=== PATIENT | female | born 1975 | race African-American/Black ===

== ENCOUNTER 2017-02-26 11:49 | Emergency (ER) | payer BC ==
[~2017-02-26] VITALS: Ht 165.1 cm; Wt 83.5 kg
[~2017-02-26 11:49] MED LIST: HYDR-971 PO
[2017-02-26] MEDS ORDERED: LIDO:MAALOX:DONNATAL 1:1:1 15 ML SINGLE DOSE SWSW ONE (12:30)
[2017-02-26] MEDS ORDERED: MORPHINE SULFATE 10 MG/ML VIAL. IV ONE ×2 (12:30→15:15)
[2017-02-26] MEDS ORDERED: ONDANSETRON PF 4 MG/2 ML VIAL. IV ONE (12:30)
[2017-02-26] MEDS ORDERED: IV NORMAL SALINE 1000ML BAG 1,000 ML IV ONE (12:30)
[2017-02-26] MEDS ORDERED: PANTOPRAZOLE IV PUSH 40 MG VIAL. IVP ONE (12:30)
[2017-02-26 12:44] LABS: BASO # 0.1 x10^3/uL (0.0-0.2); BASO % 1 % (0-3); EOS % 5 % (0-3); HEMATOCRIT 33.2 % (36.0-47.0); HEMOGLOBIN 11.3 g/dL (12.0-15.5); LYMPH # 1.7 x10^3/uL (1.0-4.8); LYMPH % 29 % (24-48); MEAN CORPUSCULAR HEMOGLOBIN 27 pg (25-35); MEAN CORPUSCULAR HGB CONC 34 g/dL (31-37); MEAN CORPUSCULAR VOLUME 79 fL (79-100); MONO % 7 % (0-9); NEUT % 58 % (31-73); PLATELET COUNT 270 x10^3/uL (140-400); RED BLOOD COUNT 4.19 x10^6/uL (3.50-5.40)
[2017-02-26 12:46] LABS: BILIRUBIN,URINE NEGATIVE (NEG); GLUCOSE,URINE NEGATIVE (NEG); NITRITE,URINE NEGATIVE (NEG); PH,URINE 5.5; PROTEIN,URINE NEGATIVE (NEG-TRACE); UROBILINOGEN,URINE 0.2 mg/dL (0.2 mg/dL)
[2017-02-26 12:51] LABS: BACTERIA,URINE FEW /HPF (0-FEW); RBC,URINE 0 /HPF (0-2); SQUAMOUS EPITHELIAL CELL,UR MANY /LPF
[2017-02-26] MEDS ORDERED: IOHEXOL 300 MG/ML 75 ML VIAL IV ONE (13:15)
[2017-02-26 13:48] LABS: CALCIUM 8.1 mg/dL (8.5-10.1); CREATININE 0.9 mg/dL (0.6-1.0); GFR 83.1; POTASSIUM 4.1 mmol/L (3.5-5.1)
[2017-02-26 13:54] LABS: ALBUMIN/GLOBULIN RATIO 0.9 (1.0-1.7); MAGNESIUM 1.5 mg/dL (1.8-2.4); TOTAL BILIRUBIN 0.2 mg/dL (0.2-1.0); TOTAL PROTEIN 6.5 g/dL (6.4-8.2)
--- NOTE | 2017-02-26 15:03 | RAD ---
Exam performed: CT scan of the abdomen and pelvis with contrast Clinical Indication:] Right upper and lower quadrant pain. History of tubal . Date of Service:02/26/17 , comparison: Pelvic ultrasound from 11/12/12 Technique: Contiguous helical acquisitions are obtained from the lung bases to the pelvis during intravenous administration of [75 mL of Isovue-320]. In addition oral contrast was also given. Sagittal and coronal reformatted images were obtained and reviewed. CT abdomen findings: The lung bases appear essentially clear. The visualized heart is normal. The liver, spleen ,gall bladder and pancreas appears unremarkable. Both adrenal glands and bilateral kidneys appear normal with symmetric excretion of contrast via both kidneys. The small bowel loops appear nondilated and unremarkable. There is no retroperitoneal lymphadenopathy or mass lesions. Small and large bowel loops are nondilated and unremarkable. Appendix is not clearly seen. No bowel related inflammatory stranding is noted. No obvious stranding is seen in the pericecal region. CT pelvis findings: The pelvic bowel loops are nondilated and unremarkable. The urinary bladder is well distended and normal . Uterus is anteverted and normal. There is a 3.4 x 3.4 x 4.6 cm low attenuating abnormality in transverse AP and coronal dimension posterior lateral to the uterus. Left ovary is not clearly seen. No free fluid. Interrogation of bone windows demonstrates no obvious bony abnormality. Sagittal and coronal reformatted images were obtained and reviewed which demonstrate no additional findings. Impression abdomen and pelvis : 1. No acute intra-abdominal or pelvic process is detected. 2. Cyst measuring 3.4 x 3.4 x 4.6 centimeter posterior lateral to the uterus representing a ovarian cyst. Patient reports a history of right oophorectomy. Evaluation with pelvic ultrasound may be of additional benefit. Results discussed with Dr. Blanco soon after completion of the study PQRS Compliance Statement: One or more of the following individualized dose reduction techniques were utilized for this examination: 1. Automated exposure control 2. Adjustment of the mA and/or kV according to patient size 3. Use of iterative reconstruction technique
[2017-02-26] MEDS ORDERED: KETOROLAC TROMETHAMINE 30 MG/ML INJ. IV ONE (15:15)
--- NOTE | 2017-02-26 15:44 | PHYS DOC ---
Past Medical History Past Medical History: No Pertinent History Past Surgical History: Other Additional Past Surgical Histo: TUBAL Alcohol Use: None Drug Use: None Adult General Chief Complaint Chief Complaint: ABDOMINAL PAIN HPI HPI Patient is a 41 year old female presenting to the emergency department for evaluation of abdominal pain that has been an ongoing issue for months and possibly years but it has been worse over the past several days the point it is intractable. He says that she feels nausea with it but no fevers chills vomiting dysuria hematuria or vaginal bleeding or vaginal discharge. Patient says the pain is bilateral lower abdomen but worse on the right side. She says that she has had a partial hysterectomy with her left ovary removed. She denies any other abdominal surgeries. Review of Systems Review of Systems Constitutional: Denies fever or chills [] Eyes: Denies change in visual acuity, redness, or eye pain [] HENT: Denies nasal congestion or sore throat [] Respiratory: Denies cough or shortness of breath [] Cardiovascular: No additional information not addressed in HPI [] GI: + abdominal pain, nausea. No vomiting, bloody stools or diarrhea [] : Denies dysuria or hematuria [] Musculoskeletal: Denies back pain or joint pain [] Integument: Denies rash or skin lesions [] Neurologic: Denies headache, focal weakness or sensory changes [] Current Medications Current Medications Current Medications Medications (Trade) Dose Ordered Sig/Lesa Start Time Stop Time Status Last Admin Dose Admin Iohexol (Omnipaque 300 Mg/ml) 75 ml 1X ONCE 02/26/17 13:15 02/26/17 13:16 DC 02/26/17 14:21 75 ML Ketorolac Tromethamine (Toradol) 30 mg 1X ONCE 02/26/17 15:15 02/26/17 15:16 DC 02/26/17 15:05 30 MG Morphine Sulfate 5 mg 1X ONCE 02/26/17 15:15 02/26/17 15:16 DC 02/26/17 15:06 5 MG Multi-Ingredient Mouthwash/Gargle (Gi Cocktail Single Dose) 15 ml 1X ONCE 02/26/17 12:30 02/26/17 12:31 DC 02/26/17 12:43 15 ML Ondansetron HCl (Zofran) 8 mg 1X ONCE 02/26/17 12:30 02/26/17 12:31 DC 02/26/17 12:44 8 MG Pantoprazole Sodium (Protonix Vial) 40 mg 1X ONCE 02/26/17 12:30 02/26/17 12:31 DC 02/26/17 12:44 40 MG Sodium Chloride 1,000 ml @ 1,000 mls/hr 1X ONCE 02/26/17 12:30 02/26/17 13:29 DC 02/26/17 12:44 1,000 MLS/HR Allergies Allergies Allergies Coded Allergies Type Severity Reaction Last Updated Verified No Known Drug Allergies 12/15/13 No Physical Exam Physical Exam Constitutional: Well developed, well nourished, no acute distress, non-toxic appearance. [] HENT: Normocephalic, atraumatic, bilateral external ears normal, oropharynx moist, no oral exudates, nose normal. [] Eyes: PERRLA, EOMI, conjunctiva normal, no discharge. [] Neck: Normal range of motion, no tenderness, supple, no stridor. [] Cardiovascular:Heart rate regular rhythm, no murmur [] Lungs & Thorax: Bilateral breath sounds clear to auscultation [] Abdomen: Bowel sounds normal, soft, + BK lower abd tenderness, No rebound or guarding. no masses, no pulsatile masses. [] Skin: Warm, dry, no erythema, no rash. [] Back: No tenderness, no CVA tenderness. [] Extremities: No tenderness, no cyanosis, no clubbing, ROM intact, no edema. [] Neurologic: Alert and oriented X 3, normal motor function, normal sensory function, no focal deficits noted. [] Current Patient Data Vital Signs Vital Signs Date Time Temp Pulse Resp B/P (MAP) Pulse Ox O2 Delivery O2 Flow Rate FiO2 02/26/17 15:06 52 189/79 (115) 100 Room Air 02/26/17 15:06 16 02/26/17 12:00 98.6 98.6 Lab Values Laboratory Tests Test 02/26/17 11:07 02/26/17 12:00 02/26/17 12:30 02/26/17 13:25 POC Urine HCG, Qualitative Hcg negative (Negative) Urine Collection Type Unknown Urine Color Yellow Urine Clarity Clear Urine pH 5.5 Urine Specific [place] >=1.030 Urine Protein Negative mg/dL (NEG-TRACE) Urine Glucose (UA) Negative mg/dL (NEG) Urine Ketones (Stick) Negative mg/dL (NEG) Urine Blood Negative (NEG) Urine Nitrite Negative (NEG) Urine Bilirubin Negative (NEG) Urine Urobilinogen Dipstick 0.2 mg/dL (0.2 mg/dL) Urine Leukocyte Esterase Negative (NEG) Urine RBC 0 /HPF (0-2) Urine WBC 5-10 /HPF (0-4) Urine Squamous Epithelial Cells Many /LPF Urine Bacteria Few /HPF (0-FEW) Urine Hyaline Casts Few /HPF Urine Mucus Mod /LPF White Blood Count 6.0 x10^3/uL (4.0-11.0) Red Blood Count 4.19 x10^6/uL (3.50-5.40) Hemoglobin 11.3 g/dL (12.0-15.5) L Hematocrit 33.2 % (36.0-47.0) L Mean Corpuscular Volume 79 fL (79-100) Mean Corpuscular Hemoglobin 27 pg (25-35) Mean Corpuscular Hemoglobin Concent 34 g/dL (31-37) Red Cell Distribution Width 18.0 % (11.5-14.5) H Platelet Count 270 x10^3/uL (140-400) Neutrophils (%) (Auto) 58 % (31-73) Lymphocytes (%) (Auto) 29 % (24-48) Monocytes (%) (Auto) 7 % (0-9) Eosinophils (%) (Auto) 5 % (0-3) H Basophils (%) (Auto) 1 % (0-3) Neutrophils # (Auto) 3.5 x10^3uL (1.8-7.7) Lymphocytes # (Auto) 1.7 x10^3/uL (1.0-4.8) Monocytes # (Auto) 0.4 x10^3/uL (0.0-1.1) Eosinophils # (Auto) 0.3 x10^3/uL (0.0-0.7) Basophils # (Auto) 0.1 x10^3/uL (0.0-0.2) Sodium Level 140 mmol/L (136-145) Potassium Level 4.1 mmol/L (3.5-5.1) Chloride Level 108 mmol/L (98-107) H Carbon Dioxide Level 25 mmol/L (21-32) Anion Gap 7 (6-14) Blood Urea Nitrogen 10 mg/dL (7-20) Creatinine 0.9 mg/dL (0.6-1.0) Estimated GFR (Cockcroft-Gault) 83.1 BUN/Creatinine Ratio 11 (6-20) Glucose Level 99 mg/dL (70-99) Calcium Level 8.1 mg/dL (8.5-10.1) L Magnesium Level 1.5 mg/dL (1.8-2.4) L Total Bilirubin 0.2 mg/dL (0.2-1.0) Aspartate Amino Transferase (AST) 10 U/L (15-37) L Alanine Aminotransferase (ALT) 12 U/L (14-59) L Alkaline Phosphatase 60 U/L (46-116) Total Protein 6.5 g/dL (6.4-8.2) Albumin 3.0 g/dL (3.4-5.0) L Albumin/Globulin Ratio 0.9 (1.0-1.7) L Lipase 141 U/L (73-393) Ethyl Alcohol Level < 10 mg/dL (0-10) Laboratory Tests 02/26/17 12:30 Laboratory Tests 02/26/17 13:25 EKG EKG [] Radiology/Procedures Radiology/Procedures Exam performed: CT scan of the abdomen and pelvis with contrast Clinical Indication:] Right upper and lower quadrant pain. History of tubal . Date of Service:02/26/17 , comparison: Pelvic ultrasound from 11/12/12 Technique: Contiguous helical acquisitions are obtained from the lung bases to the pelvis during intravenous administration of [75 mL of Isovue-320]. In addition oral contrast was also given. Sagittal and coronal reformatted images were obtained and reviewed. CT abdomen findings: The lung bases appear essentially clear. The visualized heart is normal. The liver, spleen ,gall bladder and pancreas appears unremarkable. Both adrenal glands and bilateral kidneys appear normal with symmetric excretion of contrast via both kidneys. The small bowel loops appear nondilated and unremarkable. There is no retroperitoneal lymphadenopathy or mass lesions. Small and large bowel loops are nondilated and unremarkable. Appendix is not clearly seen. No bowel related inflammatory stranding is noted. No obvious stranding is seen in the pericecal region. CT pelvis findings: The pelvic bowel loops are nondilated and unremarkable. The urinary bladder is well distended and normal . Uterus is anteverted and normal. There is a 3.4 x 3.4 x 4.6 cm low attenuating abnormality in transverse AP and coronal dimension posterior lateral to the uterus. Left ovary is not clearly seen. No free fluid. Interrogation of bone windows demonstrates no obvious bony abnormality. Sagittal and coronal reformatted images were obtained and reviewed which demonstrate no additional findings. Impression abdomen and pelvis : 1. No acute intra-abdominal or pelvic process is detected. 2. Cyst measuring 3.4 x 3.4 x 4.6 centimeter posterior lateral to the uterus representing a ovarian cyst. Patient reports a history of right oophorectomy. Evaluation with pelvic ultrasound may be of additional benefit. Results discussed with Dr. Galvan soon after completion of the study PQRS Compliance Statement: One or more of the following individualized dose reduction techniques were utilized for this examination: 1. Automated exposure control 2. Adjustment of the mA and/or kV according to patient size 3. Use of iterative reconstruction technique DICTATED and SIGNED BY: MIKE CANTU MD DATE: 02/26/17 4565 Indication: Severe pelvic pain. Transabdominal and transvaginal pelvic sonography was performed. The uterus measures 10.5 x 7.1 x 5.3 cm. The endometrium is thickened at 13 mm. There is a complex mass in the right ovary measuring 5.6 x 4.7 x 4.0 cm. There appears to be vascularity to the ovary and vascularity to the margin of the complex mass. There may be some internal vascularity, minimal. There is some free fluid. Left ovary was not visualized. Impression: 5.6 cm x 4.7 cm complex right ovarian mass. Neoplasm cannot be entirely excluded and close interval follow-up with repeat study in 4-6 weeks is recommended to confirm resolution. Note is made of endometrial thickening as well measuring 13 mm. DICTATED and SIGNED BY: TARA CERDA MD DATE: 02/26/17 0016 Course & Med Decision Making Course & Med Decision Making Patient with length ED stay due to his CT and ultrasound being obtained for her abdominal pain. No acute surgical pathology found but she does have a complex ovarian cyst versus mass on her right side. I told her that this could be cancer and that she needs gynecologic follow-up in the short-term for further evaluation and treatment and possible biopsy. Patient's repeat abdominal exam is benign and she appears well with normal vital signs she'll be discharged with supportive treatment and CERTIFIED PHLEBOTOMY TECHNICIAN follow-up. Patient aware and agreeable with plan for discharge and verbalized understanding of the need for short-term follow-up and strict ER return precautions discussed including worsening pain fevers vomiting or other general concerns. [place] Disclaimer Dragon Disclaimer This electronic medical record was generated, in whole or in part, using a voice recognition dictation system. Departure Departure Impression: Primary Impression: Ovarian cyst Additional Impression: Abdominal pain Disposition: HOME, SELF-CARE Condition: GOOD Referrals: CHEO COOLEY Jr, MD Patient Instructions: Ovarian Cyst Additional Instructions: YOU NEED TO FOLLOW WITH A CERTIFIED PHLEBOTOMY TECHNICIAN JACOBO REGARDING YOUR ULTRASOUND FINDINGS. TAKE 400MG OF IBUPROFEN EVERY 6 HOURS AND THE PERCOCET FOR BREAKTHROUGH PAIN. THANK YOU! Scripts Omeprazole Magnesium (PRILOSEC OTC) 20 Mg Tablet.dr 20 MG PO DAILY, #30 TAB Prov: NAKUL GALVAN DO 02/26/17 Ondansetron (ZOFRAN ODT) 4 Mg Tab.rapdis 4 MG PO BID Y for NAUSEA/VOMITING, #10 TAB Prov: NAKUL GALVAN DO 02/26/17 Oxycodone/Apap 5-325 (PERCOCET 5-325 MG TABLET) 1 Each Tablet 1 TAB PO PRN Q6HRS Y for PAIN, #20 TAB 0 Refills Prov: NAKUL GALVAN DO 02/26/17 Problem Qualifiers Primary Impression: Ovarian cyst Laterality: right Qualified Codes: N83.201 - Unspecified ovarian cyst, right side NAKUL GALVAN DO February 26, 2017 15:43
--- NOTE | 2017-02-26 16:13 | RAD ---
Indication: Severe pelvic pain. Transabdominal and transvaginal pelvic sonography was performed. The uterus measures 10.5 x 7.1 x 5.3 cm. The endometrium is thickened at 13 mm. There is a complex mass in the right ovary measuring 5.6 x 4.7 x 4.0 cm. There appears to be vascularity to the ovary and vascularity to the margin of the complex mass. There may be some internal vascularity, minimal. There is some free fluid. Left ovary was not visualized. Impression: 5.6 cm x 4.7 cm complex right ovarian mass. Neoplasm cannot be entirely excluded and close interval follow-up with repeat study in 4-6 weeks is recommended to confirm resolution. Note is made of endometrial thickening as well measuring 13 mm.
[2017-02-26] MEDS ORDERED: OMEP20TA63 PO (16:28)
[2017-02-26] MEDS ORDERED: OXYC-323 PO (16:28)
[2017-02-26] MEDS ORDERED: ONDA4TAB10 PO (16:28)
[2017-02-26 16:30] VITALS: BP 124/61
== END 2017-02-26 17:17 | disposition home or self-care (01) ==
LOC: ER 11:49
DX: N83.201 Unspecified ovarian cyst, right side (principal)
CPT/HCPCS: 36415; 74177; 76830; 76856; 80053; 80320; 81001; 81025; 83690; 83735; 85027; 87086; 96361; 96374; 96375; 96376; 99285; C9113; J1885; J2270; J2405; J7030; Q9967; G0480

== ENCOUNTER 2017-04-26 12:49 | Emergency (ER) | payer BC ==
[~2017-04-26] VITALS: Ht 165.1 cm; Wt 73.9 kg
[~2017-04-26 12:49] MED LIST changes: +OMEP20TA63 PO; +ONDA4TAB10 PO; +OXYC-323 PO
--- NOTE | 2017-04-26 12:58 | PHYS DOC ---
Past Medical History Past Medical History: No Pertinent History Past Surgical History: Other Additional Past Surgical Histo: TUBAL Alcohol Use: None Drug Use: None Adult General Chief Complaint Chief Complaint: ABDOMINAL PAIN HPI HPI Patient is a 41 year old female presenting to the emergency department for evaluation of right lower quadrant abdominal pain that started months ago but has been worse over the past several days. She was seen 2 months ago for the similar symptoms and was noted to have a fairly large ovarian mass and she is scheduled to have a hysterectomy with Dr. Wood on May 01 for this ovarian mass. Patient says that she is nauseated but is having no fevers chills vomiting diarrhea constipation dysuria hematuria vaginal bleeding or vaginal discharge. Review of Systems Review of Systems Constitutional: Denies fever or chills [] Eyes: Denies change in visual acuity, redness, or eye pain [] HENT: Denies nasal congestion or sore throat [] Respiratory: Denies cough or shortness of breath [] Cardiovascular: No additional information not addressed in HPI [] GI: + abdominal pain, nausea. No vomiting, bloody stools or diarrhea [] : Denies dysuria or hematuria [] Musculoskeletal: Denies back pain or joint pain [] Integument: Denies rash or skin lesions [] Neurologic: Denies headache, focal weakness or sensory changes [] Current Medications Current Medications Current Medications Medications (Trade) Dose Ordered Sig/Lesa Start Time Stop Time Status Last Admin Dose Admin Info (Do NOT chart on this entry -- for MONITORING) 1 each PRN DAILY PRN 04/26/17 13:30 04/28/17 13:29 Iohexol (Omnipaque 300 Mg/ml) 75 ml 1X ONCE 04/26/17 13:15 04/26/17 13:16 DC 04/26/17 14:01 75 ML Morphine Sulfate 5 mg 1X ONCE 04/26/17 13:30 04/26/17 13:31 DC 04/26/17 13:32 5 MG Multi-Ingredient Mouthwash/Gargle (Gi Cocktail Single Dose) 15 ml 1X ONCE 04/26/17 13:30 04/26/17 13:31 DC 04/26/17 13:28 15 ML Ondansetron HCl (Zofran) 8 mg 1X ONCE 04/26/17 13:30 04/26/17 13:31 DC 04/26/17 13:31 8 MG Sodium Chloride 1,000 ml @ 1,000 mls/hr 1X ONCE 04/26/17 13:30 04/26/17 14:29 DC 04/26/17 13:34 1,000 MLS/HR Allergies Allergies Allergies Coded Allergies Type Severity Reaction Last Updated Verified No Known Drug Allergies 12/15/13 No Physical Exam Physical Exam Constitutional: Well developed, well nourished, no acute distress, non-toxic appearance. [] HENT: Normocephalic, atraumatic, bilateral external ears normal, oropharynx moist, no oral exudates, nose normal. [] Eyes: PERRLA, EOMI, conjunctiva normal, no discharge. [] Neck: Normal range of motion, no tenderness, supple, no stridor. [] Cardiovascular:Heart rate regular rhythm, no murmur [] Lungs & Thorax: Bilateral breath sounds clear to auscultation [] Abdomen: Bowel sounds normal, soft, + RLQ tenderness, no masses, no pulsatile masses. [] Skin: Warm, dry, no erythema, no rash. [] Back: No tenderness, no CVA tenderness. [] Extremities: No tenderness, no cyanosis, no clubbing, ROM intact, no edema. [] Neurologic: Alert and oriented X 3, normal motor function, normal sensory function, no focal deficits noted. [] Current Patient Data Vital Signs Vital Signs Date Time Temp Pulse Resp B/P (MAP) Pulse Ox O2 Delivery O2 Flow Rate FiO2 04/26/17 12:55 98.2 66 20 153/88 (109) 100 Room Air 98.2 Lab Values Laboratory Tests Test 04/26/17 13:10 04/26/17 13:30 White Blood Count 5.8 x10^3/uL (4.0-11.0) Red Blood Count 4.54 x10^6/uL (3.50-5.40) Hemoglobin 12.7 g/dL (12.0-15.5) Hematocrit 37.6 % (36.0-47.0) Mean Corpuscular Volume 83 fL (79-100) Mean Corpuscular Hemoglobin 28 pg (25-35) Mean Corpuscular Hemoglobin Concent 34 g/dL (31-37) Red Cell Distribution Width 17.6 % (11.5-14.5) H Platelet Count 245 x10^3/uL (140-400) Neutrophils (%) (Auto) 64 % (31-73) Lymphocytes (%) (Auto) 23 % (24-48) L Monocytes (%) (Auto) 5 % (0-9) Eosinophils (%) (Auto) 7 % (0-3) H Basophils (%) (Auto) 1 % (0-3) Neutrophils # (Auto) 3.7 x10^3uL (1.8-7.7) Lymphocytes # (Auto) 1.4 x10^3/uL (1.0-4.8) Monocytes # (Auto) 0.3 x10^3/uL (0.0-1.1) Eosinophils # (Auto) 0.4 x10^3/uL (0.0-0.7) Basophils # (Auto) 0.1 x10^3/uL (0.0-0.2) Sodium Level 145 mmol/L (136-145) Potassium Level 4.2 mmol/L (3.5-5.1) Chloride Level 111 mmol/L (98-107) H Carbon Dioxide Level 25 mmol/L (21-32) Anion Gap 9 (6-14) Blood Urea Nitrogen 14 mg/dL (7-20) Creatinine 1.0 mg/dL (0.6-1.0) Estimated GFR (Cockcroft-Gault) 73.6 BUN/Creatinine Ratio 14 (6-20) Glucose Level 95 mg/dL (70-99) Calcium Level 8.3 mg/dL (8.5-10.1) L Total Bilirubin 0.2 mg/dL (0.2-1.0) Aspartate Amino Transferase (AST) 10 U/L (15-37) L Alanine Aminotransferase (ALT) 10 U/L (14-59) L Alkaline Phosphatase 71 U/L (46-116) Total Protein 7.4 g/dL (6.4-8.2) Albumin 3.7 g/dL (3.4-5.0) Albumin/Globulin Ratio 1.0 (1.0-1.7) Lipase 133 U/L (73-393) Urine Collection Type Unknown Urine Color Yellow Urine Clarity Clear Urine pH 5.5 Urine Specific [place] 1.020 Urine Protein Negative mg/dL (NEG-TRACE) Urine Glucose (UA) Negative mg/dL (NEG) Urine Ketones (Stick) Negative mg/dL (NEG) Urine Blood Negative (NEG) Urine Nitrite Negative (NEG) Urine Bilirubin Negative (NEG) Urine Urobilinogen Dipstick 0.2 mg/dL (0.2 mg/dL) Urine Leukocyte Esterase Negative (NEG) Urine RBC Occ /HPF (0-2) Urine WBC Occ /HPF (0-4) Urine Squamous Epithelial Cells Few /LPF Urine Bacteria 0 /HPF (0-FEW) Urine Mucus Slight /LPF Urine Test Negative (NEG) Laboratory Tests 04/26/17 13:10 Laboratory Tests 04/26/17 13:10 EKG EKG [] Radiology/Procedures Radiology/Procedures Examination: CT of the abdomen pelvis with IV contrast History: History of right lower quadrant abdominal pain. Comparison: 02/26/2017 Technique: Axial CT images of the abdomen pelvis performed with IV contrast. Coronal and sagittal reformats were performed PQRS Compliance Statement: One or more of the following individualized dose reduction techniques were utilized for this examination: 1. Automated exposure control 2. Adjustment of the mA and/or kV according to patient size 3. Use of iterative reconstruction technique Findings: The visualized bibasal lungs grossly appears unremarkable. No evidence of free air identified in the abdomen. The visualized liver, spleen, adrenals grossly appears unremarkable. The gallbladder is mildly distended. The visualized pancreas grossly appears unremarkable. The stomach is mildly distended. The small bowel is nondilated. The partially visualized appendix grossly appears unremarkable. Feces and gas noted in the colon. The urinary bladder is mildly distended. There is a cystic structure identified in the right adnexa posteriorly measuring 2.8 x 2.8 cm likely a cyst or cystic lesion. This is smaller in size compared to prior exam of 03/06/2017. The bilateral kidneys enhance symmetrically. The visualized aorta grossly appears unremarkable. No evidence of lytic bony destructive lesion. Impression: 1. 2.8 cm cystic structure identified in the right adnexa likely a right ovarian or adnexal cyst or cystic lesion. This is smaller in size compared to prior exam (where it measured 4.6 x 3.4 cm). DICTATED and SIGNED BY: CASA HARO MD DATE: 04/26/17 1429 Examination: Ultrasound pelvis. History: History of known pelvic mass Comparison: 02/26/2017 Findings: The patient refused transvaginal ultrasound exam. The uterus measures 10.2 x 6.8 x5.3 cm. The endometrium measures 1.1 cm in thickness. There is a 3.8 x 3.1 x 2.6 cm hypoechogenicity identified in the right adnexa which could be the right ovarian or adnexal cyst or cystic lesion differentiation is difficult on this examination. There is a 1.4 cm cystic structure identified in the cervical region. Impression: 1. 3.8 cm cystic hypoechogenicity identified in the right adnexa could be a right ovarian or adnexal cyst or cystic lesion. Examination limited due to lack of transvaginal ultrasound exam. Patient refused transvaginal ultrasound exam. 2. Cystic structure identified in the cervix region measuring 1.4 cm probably a nabothian cyst. DICTATED and SIGNED BY: CASA HARO MD DATE: 04/26/17 1418 Course & Med Decision Making Course & Med Decision Making We'll get CT to rule out appendicitis and get a pelvic ultrasound to rule out torsion. Ultrasound and CT are negative for acute process. Dr. Lyman came and spoke to patient and told patient to keep her operative follow-up and patient agrees to do so. Patient told to take ibuprofen for pain and [place] for breakthrough pain and come back to the ER sooner with any worsening pain fevers vomiting or other general concerns. [place] aware and agreeable with plan and verbalized understanding of the above instructions. Dragon Disclaimer Dragon Disclaimer This electronic medical record was generated, in whole or in part, using a voice recognition dictation system. Departure Departure Impression: Primary Impression: Abdominal pain Additional Impression: Ovarian mass, right Disposition: 01 HOME, SELF-CARE Condition: GOOD Referrals: CHEO WOOD Jr, MD Patient Instructions: Ovarian Cyst Scripts Hydrocodone/Apap 5-325 (NOR[place] 5-325 TABLET) 1 Each Tablet 1 TAB PO PRN Q6HRS Y for PAIN, #20 TAB 0 Refills Prov: NAKUL GALVAN DO 04/26/17 Problem Qualifiers Primary Impression: Abdominal pain Abdominal location: right lower quadrant Qualified Codes: R10.31 - Right lower quadrant pain NAKUL GALVAN DO Apr 26, 2017 12:58
[2017-04-26] MEDS ORDERED: IOHEXOL 300 MG/ML 75 ML VIAL IV ONE (13:15)
[2017-04-26 13:24] LABS: BASO # 0.1 x10^3/uL (0.0-0.2); BASO % 1 % (0-3); EOS % 7 % (0-3); HEMATOCRIT 37.6 % (36.0-47.0); HEMOGLOBIN 12.7 g/dL (12.0-15.5); LYMPH # 1.4 x10^3/uL (1.0-4.8); LYMPH % 23 % (24-48); MEAN CORPUSCULAR HEMOGLOBIN 28 pg (25-35); MEAN CORPUSCULAR HGB CONC 34 g/dL (31-37); MEAN CORPUSCULAR VOLUME 83 fL (79-100); MONO % 5 % (0-9); NEUT % 64 % (31-73); PLATELET COUNT 245 x10^3/uL (140-400); RED BLOOD COUNT 4.54 x10^6/uL (3.50-5.40); RED CELL DISTRIBUTION WIDTH 17.6 % (11.5-14.5); WHITE BLOOD COUNT 5.8 x10^3/uL (4.0-11.0)
[2017-04-26] MEDS ORDERED: IV NORMAL SALINE 1000ML BAG 1,000 ML IV ONE (13:30)
[2017-04-26] MEDS ORDERED: ONDANSETRON PF 4 MG/2 ML VIAL. IV ONE (13:30)
[2017-04-26] MEDS ORDERED: LIDO:MAALOX:DONNATAL 1:1:1 15 ML SINGLE DOSE SWSW ONE (13:30)
[2017-04-26] MEDS ORDERED: CONTRAST GIVEN MC PRN (13:30)
[2017-04-26] MEDS ORDERED: MORPHINE SULFATE 10 MG/ML VIAL. IV ONE (13:30)
[2017-04-26 13:34] LABS: CALCIUM 8.3 mg/dL (8.5-10.1); GFR 73.6; POTASSIUM 4.2 mmol/L (3.5-5.1)
[2017-04-26 13:40] LABS: ALBUMIN 3.7 g/dL (3.4-5.0); TOTAL BILIRUBIN 0.2 mg/dL (0.2-1.0); TOTAL PROTEIN 7.4 g/dL (6.4-8.2)
[2017-04-26 13:49] LABS: BILIRUBIN,URINE NEGATIVE (NEG); GLUCOSE,URINE NEGATIVE (NEG); NITRITE,URINE NEGATIVE (NEG); PH,URINE 5.5; PROTEIN,URINE NEGATIVE (NEG-TRACE); UROBILINOGEN,URINE 0.2 mg/dL (0.2 mg/dL)
[2017-04-26 13:57] LABS: BACTERIA,URINE 0 /HPF (0-FEW); RBC,URINE OCC /HPF (0-2); SQUAMOUS EPITHELIAL CELL,UR FEW /LPF; WBC,URINE OCC /HPF (0-4)
[2017-04-26 14:10] LABS: NEG OBC UR NEG; POS OBC UR POS
--- NOTE | 2017-04-26 14:26 | RAD ---
Examination: Ultrasound pelvis. History: History of known pelvic mass Comparison: 02/26/2017 Findings: The patient refused transvaginal ultrasound exam. The uterus measures 10.2 x 6.8 x5.3 cm. The endometrium measures 1.1 cm in thickness. There is a 3.8 x 3.1 x 2.6 cm hypoechogenicity identified in the right adnexa which could be the right ovarian or adnexal cyst or cystic lesion differentiation is difficult on this examination. There is a 1.4 cm cystic structure identified in the cervical region. Impression: 1. 3.8 cm cystic hypoechogenicity identified in the right adnexa could be a right ovarian or adnexal cyst or cystic lesion. Examination limited due to lack of transvaginal ultrasound exam. Patient refused transvaginal ultrasound exam. 2. Cystic structure identified in the cervix region measuring 1.4 cm probably a nabothian cyst.
--- NOTE | 2017-04-26 14:40 | RAD ---
Examination: CT of the abdomen pelvis with IV contrast History: History of right lower quadrant abdominal pain. Comparison: 02/26/2017 Technique: Axial CT images of the abdomen pelvis performed with IV contrast. Coronal and sagittal reformats were performed PQRS Compliance Statement: One or more of the following individualized dose reduction techniques were utilized for this examination: 1. Automated exposure control 2. Adjustment of the mA and/or kV according to patient size 3. Use of iterative reconstruction technique Findings: The visualized bibasal lungs grossly appears unremarkable. No evidence of free air identified in the abdomen. The visualized liver, spleen, adrenals grossly appears unremarkable. The gallbladder is mildly distended. The visualized pancreas grossly appears unremarkable. The stomach is mildly distended. The small bowel is nondilated. The partially visualized appendix grossly appears unremarkable. Feces and gas noted in the colon. The urinary bladder is mildly distended. There is a cystic structure identified in the right adnexa posteriorly measuring 2.8 x 2.8 cm likely a cyst or cystic lesion. This is smaller in size compared to prior exam of 03/06/2017. The bilateral kidneys enhance symmetrically. The visualized aorta grossly appears unremarkable. No evidence of lytic bony destructive lesion. Impression: 1. 2.8 cm cystic structure identified in the right adnexa likely a right ovarian or adnexal cyst or cystic lesion. This is smaller in size compared to prior exam (where it measured 4.6 x 3.4 cm).
[2017-04-26] MEDS ORDERED: HYDR-971 PO (15:08)
[2017-04-26 15:19] VITALS: BP 142/78
== END 2017-04-26 15:21 | disposition home or self-care (01) ==
LOC: ER 12:49
DX: N88.8 Other specified noninflammatory disorders of cervix uteri (principal); R11.0 Nausea; Z90.710 Acquired absence of both cervix and uterus
CPT/HCPCS: 36415; 74177; 76856; 80053; 81001; 81025; 83690; 85027; 96361; 96374; 96375; 99285; J2270; J2405; J7030; Q9967; C1887

== ENCOUNTER 2017-05-01 07:03 | Observation (INO) | payer BC ==
[2017-05-01] VITALS (10 sets, daily range): BP systolic 93–143; BP diastolic 46–83
[~2017-05-01] VITALS: Ht 165.1 cm; Wt 74.4 kg
[~2017-05-01 07:03] MED LIST changes: +ESTROGENS, CONJ VAGINAL CREAM 30GM TUBE. ONE; +IV RINGERS,LACTATED 1000ML 1,000 ML IV SCH; +LIDOCAINE 1% 1 ML SYRINGE. ID PRN; +LIDOCAINE 1%/EPI 1:100,000 20 ML VIAL. ONE; +ONDANSETRON PF 4 MG/2 ML VIAL. IV PRN; +PROCHLORPERAZINE 10 MG/2 ML VIAL. IV PRN; +SURGICEL HEMOSTAT 4X8 EACH. ONE; +fentaNYL PF VIAL 100 MCG/2 ML VIAL IV PRN
[2017-05-01] MEDS ORDERED: LIDOCAINE 2% PF Vial for OR 5 ML VIAL. ONE ×3 (07:10→15:42)
[2017-05-01] MEDS ORDERED: PROPOFOL 20 ML IV ONE ×2 (07:10→14:37)
[2017-05-01] MEDS ORDERED: ROCURONIUM 50 MG/5 ML VIAL. ONE ×2 (07:11→14:39)
[2017-05-01] MEDS ORDERED: ONDANSETRON PF 4 MG/2 ML VIAL. ONE ×3 (07:11→14:37)
[2017-05-01] MEDS ORDERED: DEXAMETHASONE SOD PHOS 20 MG/5 ML VIAL. ONE (07:11)
[2017-05-01] MEDS ORDERED: fentaNYL PF VIAL 100 MCG/2 ML VIAL ONE ×3 (07:14→14:39)
[2017-05-01] MEDS ORDERED: BUPIVACAINE-EPI 0.5%-1:200000 50 ML VIAL. ONE (07:29)
[2017-05-01] MEDS ORDERED: BUPIVACAINE-EPI 0.25%-1:200000 50 ML VIAL. ONE ×2 (07:32→15:22)
[2017-05-01] MEDS ORDERED: MIDAZOLAM HCL/PF 2 MG/2 ML VIAL. ONE (08:03)
[2017-05-01 08:04] LABS: NEG OBC UR NEG; POS OBC UR POS
[2017-05-01] MEDS ORDERED: GLYCOPYRROLATE 1 MG/5 ML VIAL. ONE ×2 (09:09→09:27)
[2017-05-01] MEDS ORDERED: DESFLURANE > 120 MINUTES IH ONE (09:23)
[2017-05-01] MEDS ORDERED: KETOROLAC 30 MG/ML INJ FOR OR. INJ ONE (09:27)
[2017-05-01] MEDS ORDERED: NEOSTIGMINE METHYLSULFATE 5 MG/5 ML SYRINGE. ONE (09:29)
--- NOTE | 2017-05-01 10:24 | PDOC ---
BRIEF OPERATIVE NOTE Pre-Op Diagnosis 1. Fibroids 2. Dyspareunia 3. ROV Cyst Post-Op Diagnosis Same Procedure Performed LAVH & RSO with single site incision Surgeon Dr. Wood Anesthesia Type: General Blood Loss 400 ml Specimens Obtained uterus, cervix, RIght fallopian tube and ROV Findings enlarged, fibroid uterus; ROV Complex cyst; nml ELDER, nml fallopian tubes tova. Complications none CHEO WOOD Jr, MD May 01, 2017 10:24
[2017-05-01] MEDS ORDERED: DEXTROSE 50% 25 GM / 50ML DISP.SYRIN. IV PRN (10:30)
[2017-05-01] MEDS ORDERED: SIMETHICONE 80 MG TAB.CHEW PO PRN (10:30)
[2017-05-01] MEDS ORDERED: ONDANSETRON PF 4 MG/2 ML VIAL. IV PRN (10:30)
[2017-05-01] MEDS ORDERED: diphenhydrAMINE 50 MG/ML VIAL IV PRN (10:30)
[2017-05-01] MEDS ORDERED: PROCHLORPERAZINE 10 MG/2 ML VIAL. IV PRN (10:30)
[2017-05-01] MEDS ORDERED: 0.9 % SODIUM CHLORIDE 10 ML DISP.SYRIN. IV PRN (10:30)
[2017-05-01] MEDS ORDERED: diphenhydrAMINE HCL 25 MG CAPSULE PO PRN (10:30)
[2017-05-01] MEDS ORDERED: KETOROLAC TROMETHAMINE 30 MG/ML INJ. IV PRN (10:30)
[2017-05-01] MEDS ORDERED: ZOLPIDEM 5 MG TABLET. PO PRN (10:30)
[2017-05-01] MEDS: fentaNYL PF VIAL 100 MCG/2 ML VIAL IV PRN ×3 (10:31→11:03)
[2017-05-01] MEDS: HYDROmorphone 2 MG/ML VIAL IV PRN ×5 (10:46→12:55)
[2017-05-01] MEDS: MORPHINE SULFATE 2 MG/ML DISP.SYRIN. IV PRN ×3 (11:31→20:49)
[2017-05-01] MEDS ORDERED: MEPERIDINE PF 25 MG/ML VIAL. ONE (11:38)
[2017-05-01] MEDS ORDERED: MEPERIDINE PF 25 MG/ML VIAL. IV PRN (11:45)
[2017-05-01] MEDS ORDERED: FAMOTIDINE 20 MG/2 ML VIAL ONE (14:37)
[2017-05-01] MEDS ORDERED: SUCCINYLCHOLINE 200 MG/10 ML VIAL. ONE (14:39)
[2017-05-01 14:57] LABS: HEMATOCRIT 28.4 % (36.0-47.0); HEMOGLOBIN 9.3 g/dL (12.0-15.5); RED BLOOD COUNT 3.37 x10^6/uL (3.50-5.40); RED CELL DISTRIBUTION WIDTH 17.7 % (11.5-14.5); WHITE BLOOD COUNT 18.2 x10^3/uL (4.0-11.0)
[2017-05-01] MEDS ORDERED: PHENYLEPHRINE in 0.9% NACL PF 1 MG/10 ML DISP.SYRIN. IV ONE (15:10)
[2017-05-01] MEDS ORDERED: ePHEDrine PF IN SALINE 50 MG/5 ML DISP.SYRIN IV ONE (15:17)
--- NOTE | 2017-05-01 15:54 | PDOC ---
BRIEF OPERATIVE NOTE Pre-Op Diagnosis Post Op Hematoma Post-Op Diagnosis SAme Procedure Performed Op LPSC evacuation hematoma Surgeon Dr. Wood Senior Support Engineer Dr. Young Anesthesia Type: General Blood Loss 400 ml ( old blood clot) Specimens Obtained none Findings post op hematoma of 400ml in abd. Complications post op hematoma CHEO WOOD Jr, MD May 01, 2017 15:54
[2017-05-01] MEDS: oxyCODONE/APAP 5/325 1 TAB TABLET PO PRN ×2 (18:05→22:09)
[2017-05-01 19:02] LABS: HEMATOCRIT 26.5 % (36.0-47.0); HEMOGLOBIN 8.7 g/dL (12.0-15.5); RED BLOOD COUNT 3.12 x10^6/uL (3.50-5.40); RED CELL DISTRIBUTION WIDTH 17.4 % (11.5-14.5); WHITE BLOOD COUNT 15.9 x10^3/uL (4.0-11.0)
[2017-05-01] MEDS ORDERED: IV RINGERS,LACTATED 1000ML 1,000 ML IV SCH (21:30)
[2017-05-01] MEDS: GABAPENTIN 300 MG CAPSULE. PO SCH (22:09)
[2017-05-02] VITALS (9 sets, daily range): BP systolic 103–135; BP diastolic 62–72
[2017-05-02] MEDS: oxyCODONE/APAP 5/325 1 TAB TABLET PO PRN ×5 (02:13→20:48)
[2017-05-02 05:11] LABS: BASO # 0.1 x10^3/uL (0.0-0.2); BASO % 1 % (0-3); EOS % 0 % (0-3); LYMPH % 16 % (24-48); MEAN CORPUSCULAR HEMOGLOBIN 28 pg (25-35); MEAN CORPUSCULAR HGB CONC 33 g/dL (31-37); MEAN CORPUSCULAR VOLUME 84 fL (79-100); MONO % 9 % (0-9); NEUT % 74 % (31-73); PLATELET COUNT 197 x10^3/uL (140-400); RED BLOOD COUNT 2.39 x10^6/uL (3.50-5.40); RED CELL DISTRIBUTION WIDTH 17.4 % (11.5-14.5); WHITE BLOOD COUNT 12.2 x10^3/uL (4.0-11.0)
[2017-05-02 05:17] LABS: HEMATOCRIT 20.1 % (36.0-47.0); HEMOGLOBIN 6.6 g/dL (12.0-15.5)
--- NOTE | 2017-05-02 08:44 | PDOC ---
SURGICAL PROGRESS NOTE Subjective PT. feeling better. She is tolerating regular diet and pain controlled. Vital Signs Vital Signs Date Time Temp Pulse Resp B/P (MAP) Pulse Ox O2 Delivery O2 Flow Rate FiO2 05/02/17 06:45 98.6 77 16 104/66 98.6 05/01/17 16:56 99 Room Air 05/01/17 15:56 10 I&O Intake and Output 05/02/17 07:00 Intake Total 2420 ml Output Total 2600 ml Balance -180 ml Intake Oral 420 ml IV Total 995 ml Other 1005 ml Output Urine Total 2600 ml PATIENT HAS A JOHNSON: Yes General: Alert, Oriented X3, Cooperative, No acute distress HEENT: PERRLA, Mucous membr. moist/pink Lungs: Clear to auscultation, Normal air movement Heart: Regular rate, Normal S1, Normal S2, No murmurs Abdomen: Normal bowel sounds, Soft, No tenderness, No hepatosplenomegaly, No masses Extremities: No clubbing, No cyanosis, No edema, Normal pulses, No tenderness/ swelling Skin: No rashes, No breakdown, No significant lesion Neuro: Normal gait, Normal speech, Strength at 5/5 X4 ext, Normal tone, Sensation intact, Reflexes 2+ Psych/Mental Status: Mental status NL, Mood NL Labs Laboratory Tests Test 05/01/17 07:15 05/01/17 14:50 05/01/17 18:15 05/02/17 04:40 Urine Test Negative (NEG) White Blood Count 18.2 x10^3/uL (4.0-11.0) 15.9 x10^3/uL (4.0-11.0) 12.2 x10^3/uL (4.0-11.0) Red Blood Count 3.37 x10^6/uL (3.50-5.40) 3.12 x10^6/uL (3.50-5.40) 2.39 x10^6/uL (3.50-5.40) Hemoglobin 9.3 g/dL (12.0-15.5) 8.7 g/dL (12.0-15.5) 6.6 g/dL (12.0-15.5) Hematocrit 28.4 % (36.0-47.0) 26.5 % (36.0-47.0) 20.1 % (36.0-47.0) Mean Corpuscular Volume 84 fL (79-100) 85 fL (79-100) 84 fL (79-100) Mean Corpuscular Hemoglobin 28 pg (25-35) 28 pg (25-35) 28 pg (25-35) Mean Corpuscular Hemoglobin Concent 33 g/dL (31-37) 33 g/dL (31-37) 33 g/dL (31-37) Red Cell Distribution Width 17.7 % (11.5-14.5) 17.4 % (11.5-14.5) 17.4 % (11.5-14.5) Platelet Count 144 x10^3/uL (140-400) 219 x10^3/uL (140-400) 197 x10^3/uL (140-400) Neutrophils (%) (Auto) 74 % (31-73) Lymphocytes (%) (Auto) 16 % (24-48) Monocytes (%) (Auto) 9 % (0-9) Eosinophils (%) (Auto) 0 % (0-3) Basophils (%) (Auto) 1 % (0-3) Neutrophils # (Auto) 9.1 x10^3uL (1.8-7.7) Lymphocytes # (Auto) 2.0 x10^3/uL (1.0-4.8) Monocytes # (Auto) 1.2 x10^3/uL (0.0-1.1) Eosinophils # (Auto) 0.0 x10^3/uL (0.0-0.7) Basophils # (Auto) 0.1 x10^3/uL (0.0-0.2) Laboratory Tests Test 05/01/17 14:50 05/01/17 18:15 05/02/17 04:40 White Blood Count 18.2 x10^3/uL (4.0-11.0) 15.9 x10^3/uL (4.0-11.0) 12.2 x10^3/uL (4.0-11.0) Red Blood Count 3.37 x10^6/uL (3.50-5.40) 3.12 x10^6/uL (3.50-5.40) 2.39 x10^6/uL (3.50-5.40) Hemoglobin 9.3 g/dL (12.0-15.5) 8.7 g/dL (12.0-15.5) 6.6 g/dL (12.0-15.5) Hematocrit 28.4 % (36.0-47.0) 26.5 % (36.0-47.0) 20.1 % (36.0-47.0) Mean Corpuscular Volume 84 fL (79-100) 85 fL (79-100) 84 fL (79-100) Mean Corpuscular Hemoglobin 28 pg (25-35) 28 pg (25-35) 28 pg (25-35) Mean Corpuscular Hemoglobin Concent 33 g/dL (31-37) 33 g/dL (31-37) 33 g/dL (31-37) Red Cell Distribution Width 17.7 % (11.5-14.5) 17.4 % (11.5-14.5) 17.4 % (11.5-14.5) Platelet Count 144 x10^3/uL (140-400) 219 x10^3/uL (140-400) 197 x10^3/uL (140-400) Neutrophils (%) (Auto) 74 % (31-73) Lymphocytes (%) (Auto) 16 % (24-48) Monocytes (%) (Auto) 9 % (0-9) Eosinophils (%) (Auto) 0 % (0-3) Basophils (%) (Auto) 1 % (0-3) Neutrophils # (Auto) 9.1 x10^3uL (1.8-7.7) Lymphocytes # (Auto) 2.0 x10^3/uL (1.0-4.8) Monocytes # (Auto) 1.2 x10^3/uL (0.0-1.1) Eosinophils # (Auto) 0.0 x10^3/uL (0.0-0.7) Basophils # (Auto) 0.1 x10^3/uL (0.0-0.2) Assessment/Plan A: POD#1 s/p TLH & RSO POD#1 s/p Op LPSC Evacuation hematoma from post op hemorrhage P: Continue post op care. Pt. receiving 2 Units PRBC's. Problems: CHEO COOLEY Jr, MD May 02, 2017 08:44
[2017-05-02] MEDS: GABAPENTIN 300 MG CAPSULE. PO SCH (11:49)
--- NOTE | 2017-05-02 13:54 | PATHOLOGY ---
PATHOLOGY REPORT * * * * * * * * FINAL DIAGNOSIS: Uterus, cervix, fallopian tube and ovary, "uterus, cervix, right fallopian tube and ovary," hysterectomy and right salpingo-oophorectomy: - Uterine cervix with moderate chronic cervicitis and with squamous metaplasia. - Multiple subserosal and intramural leiomyomas. - Adenomyoses. - Late secretory endometrium, focally polypoid and hemorrhagic without any evidence of hyperplasia or malignancy. - Right ovary with hemorrhagic corpus luteum and hemorrhagic follicular cysts. - Right fallopian tube with no diagnostic changes. (SHA:; 05/02/2017) REPORT ELECTRONICALLY SIGNED BY: Jack Dodd M.D. DATE/TIME: 05/02/2017 13:53 * * * * * * * * GROSS PATHOLOGY: The specimen is received in formalin labeled "Ousmane Sierra, uterus, cervix and right tube and ovary". Received is a 146.1 g, 9.5 x 5.8 x 4.3 cm uterus with attached cervix. The uterine serosa is pink bean to yellow bean, with a few focal wispy adhesions present on the fundus. The 1.8 cm linear cervical os is surrounded by pink bean ectocervical mucosa. The uterus is oriented using the peritoneal reflection and the anterior paracervical margin is inked black. The uterus is opened laterally to reveal a yellow bean, corrugated endocervical canal measuring 2.6 cm in length. Sectioning the cervix shows multiple cysts that contain thick yellow bean mucoid material. The endometrial cavity is triangular in shape measuring 4.5 cm in length by 3.6 cm in width. The endometrium is dark reddish purple and shaggy in appearance and measures 0.5 cm in thickness. Serial sectioning reveals a yellow bean, trabeculated myometrium measuring 1.8 cm in thickness with few nodules consistent with leiomyomas. Within the specimen container is a 3.6 x 2.0 x 1.8 cm ovary that weighs 12 g. This is sectioned to reveal a pink bean cut surface with multiple small cortical cysts. Approximately one half of the ovary has a pink bean, solid appearance. Attached to the ovary is a short segment of apparent fallopian tube, measuring 3.2 cm in length and 0.6 cm in diameter. Central Office Operator sections are submitted as follows: A1- anterior and posterior cervix A2- serosal adhesions A3-A4- anterior endomyometrium A5- posterior endomyometrium A6- printing supplies sales representative sections of ovary A7- printing supplies sales representative section of ovary and fallopian tube (SHA; 05/01/17) INITIAL CPT CODE(S): A; 75688 Professional services performed [place] [address] Technical services performed by [facility] at [address] [place] [address], [facility] [address] [address]. SPECIMEN(S) RECEIVED: A.Uterus, cervix, right fallopian tube and ovary CLINICAL HISTORY: Dyspareunia, fibroid uterus PATIENT: OUSMANE SIERRA /AGE: 9 1975 (Age: 41) PATIENT #: [id number] ALT CASE #: SPECIMEN COLLECTION DATE: 05/01/2017 SPECIMEN RECEIVED DATE: 05/01/2017 [facility] - [address] [place] [address] - PHONE: [phone] * * * END OF REPORT * * *
[2017-05-02 14:09] LABS: HEMATOCRIT 26.9 % (36.0-47.0); HEMOGLOBIN 9.2 g/dL (12.0-15.5); RED BLOOD COUNT 3.11 x10^6/uL (3.50-5.40); RED CELL DISTRIBUTION WIDTH 16.7 % (11.5-14.5); WHITE BLOOD COUNT 9.8 x10^3/uL (4.0-11.0)
[2017-05-02] MEDS: CALCIUM CARBONATE 500 MG TAB.CHEW PO PRN (16:44)
[2017-05-03] MEDS: oxyCODONE/APAP 5/325 1 TAB TABLET PO PRN ×3 (00:35→10:27)
[2017-05-03] MEDS: GABAPENTIN 300 MG CAPSULE. PO SCH (06:05)
[2017-05-03 06:13] VITALS: BP 140/95
[2017-05-03] MEDS: CALCIUM CARBONATE 500 MG TAB.CHEW PO PRN (08:25)
--- NOTE | 2017-05-03 09:53 | PDOC ---
SURGICAL PROGRESS NOTE Subjective PT. feeling better. She is tolerating regular diet, ambulating and voiding without difficulty. Positive flatus. Vital Signs Vital Signs Date Time Temp Pulse Resp B/P (MAP) Pulse Ox O2 Delivery O2 Flow Rate FiO2 05/03/17 06:13 98.8 71 16 140/95 (110) 98.8 05/02/17 15:00 Room Air I&O Intake and Output 05/03/17 07:00 Output Total 450 ml Balance -450 ml Output Urine Total 450 ml # Voids 2 PATIENT HAS A JOHNSON: No General: Alert, Oriented X3, Cooperative HEENT: Atraumatic Lungs: Clear to auscultation Heart: Regular rate Abdomen: Normal bowel sounds, Soft, No masses Extremities: No edema Psych/Mental Status: Mental status NL Labs Laboratory Tests Test 05/01/17 14:50 05/01/17 18:15 05/02/17 04:40 05/02/17 13:55 White Blood Count 18.2 x10^3/uL (4.0-11.0) 15.9 x10^3/uL (4.0-11.0) 12.2 x10^3/uL (4.0-11.0) 9.8 x10^3/uL (4.0-11.0) Red Blood Count 3.37 x10^6/uL (3.50-5.40) 3.12 x10^6/uL (3.50-5.40) 2.39 x10^6/uL (3.50-5.40) 3.11 x10^6/uL (3.50-5.40) Hemoglobin 9.3 g/dL (12.0-15.5) 8.7 g/dL (12.0-15.5) 6.6 g/dL (12.0-15.5) 9.2 g/dL (12.0-15.5) Hematocrit 28.4 % (36.0-47.0) 26.5 % (36.0-47.0) 20.1 % (36.0-47.0) 26.9 % (36.0-47.0) Mean Corpuscular Volume 84 fL (79-100) 85 fL (79-100) 84 fL (79-100) 86 fL ( 79-100) Mean Corpuscular Hemoglobin 28 pg (25-35) 28 pg (25-35) 28 pg (25-35) 29 pg ( 25-35) Mean Corpuscular Hemoglobin Concent 33 g/dL (31-37) 33 g/dL (31-37) 33 g/dL (31-37) 34 g/dL (31-37) Red Cell Distribution Width 17.7 % (11.5-14.5) 17.4 % (11.5-14.5) 17.4 % (11.5-14.5) 16.7 % (11.5-14.5) Platelet Count 144 x10^3/uL (140-400) 219 x10^3/uL (140-400) 197 x10^3/uL (140-400) 165 x10^3/uL (140-400) Neutrophils (%) (Auto) 74 % (31-73) Lymphocytes (%) (Auto) 16 % (24-48) Monocytes (%) (Auto) 9 % (0-9) Eosinophils (%) (Auto) 0 % (0-3) Basophils (%) (Auto) 1 % (0-3) Neutrophils # (Auto) 9.1 x10^3uL (1.8-7.7) Lymphocytes # (Auto) 2.0 x10^3/uL (1.0-4.8) Monocytes # (Auto) 1.2 x10^3/uL (0.0-1.1) Eosinophils # (Auto) 0.0 x10^3/uL (0.0-0.7) Basophils # (Auto) 0.1 x10^3/uL (0.0-0.2) Laboratory Tests Test 05/02/17 13:55 White Blood Count 9.8 x10^3/uL (4.0-11.0) Red Blood Count 3.11 x10^6/uL (3.50-5.40) Hemoglobin 9.2 g/dL (12.0-15.5) Hematocrit 26.9 % (36.0-47.0) Mean Corpuscular Volume 86 fL (79-100) Mean Corpuscular Hemoglobin 29 pg (25-35) Mean Corpuscular Hemoglobin Concent 34 g/dL (31-37) Red Cell Distribution Width 16.7 % (11.5-14.5) Platelet Count 165 x10^3/uL (140-400) Assessment/Plan A: POD#2 s/p LAVH & RSO Post op hemorrhage requiring Op LPSC evacuation hematoma P: D/c home. Problems: CHEO COOLEY Jr, MD May 03, 2017 09:53
--- NOTE | 2017-05-03 09:54 | DISCH ---
DISCHARGE INSTRUCTIONS Condition on Discharge Condition on Discharge: Stable Activity After Discharge Activity Instructions for Disc: Activity as tolerated Lifting Instructions after Dis: No heavy lifting Driving Instructions after Dis: Do not drive today Diet after Discharge Diet after Discharge: Regular Contacting the DRMalcom after DC Call your doctor for: Concerns you may have Follow-Up Follow up with: Dr. Wood in 2 weeks. CHEO WOOD Jr, MD May 03, 2017 09:54
[2017-05-03] MEDS ORDERED: OXYC-323 PO (09:55)
[2017-05-03] MEDS ORDERED: DOCU-109 PO (09:55)
[2017-05-03] MEDS ORDERED: IBUP-1060 PO (09:55)
[2017-05-03 11:38] VITALS: BP 132/85
--- NOTE | 2017-05-21 23:24 | OP ---
DATE OF SURGERY: 05/01/2017 PREOPERATIVE DIAGNOSES: Postoperative hemorrhage and acute blood loss. POSTOPERATIVE DIAGNOSES: Postoperative hemorrhage and acute blood loss. PROCEDURE: Laparoscopic exploratory for evacuation of hematoma. SURGEON: Dr. Wood. LEAD FORMER: Dr. Young. SURGICAL SUMMARY: The patient was evaluated a few hours after seen about 2-3 hours after surgery, was found to have a distended abdomen along with the possibility of internal bleeding. The patient was then taken immediately to the operating room. The patient's abdomen was prepped with ChloraPrep and draped in sterile fashion. After adequate anesthesia, an incision was made in the left upper quadrant, at which a Veress needle was then placed. The abdomen was allowed to insufflate up to 1-1/2 liters CO2 gas. The Veress needle was then removed, 5 mm trocar was then placed and the camera was placed. There was moderate amount of blood in the pelvic cul-de-sac. Two additional incisions on the right and left lower quadrant were placed and 5 mm trocars. Suction irrigation was utilized to remove the blood clot. The vaginal cuff was evaluated and some minimal bleeding around the left uterine artery. This was coagulated with EnSeal device. Surgicel was also placed along with the vaginal cuff. The area was ____ hemostatic. The rest of the pedicles were all hemostatic as well. Trocars were removed under direct visualization. The abdomen was allowed to deflate as much as possible. The three skin incisions were reapproximated using 4-0 Vicryl suture in a subcuticular manner. A 0.25% Marcaine with epinephrine was injected at each incision site. The patient tolerated the procedure well and was sent to recovery room in stable condition. Sponge and needle count correct x 3. CHEO WOOD MD DR: DILAN/sarkis JOB#: [id number] / [id number]
--- NOTE | 2017-05-21 23:57 | OP ---
DATE OF SURGERY: PREOPERATIVE DIAGNOSES: 1. Fibroid uterus. 2. Abnormal uterine bleeding. 3. Right ovarian cyst. POSTOPERATIVE DIAGNOSES: 1. Fibroid uterus. 2. Abnormal uterine bleeding. 3. Right ovarian cyst. SURGEON: Cheo Wood MD. DESCRIPTION OF PROCEDURE: The patient was taken to the surgery suite and placed in dorsal lithotomy position. She was prepped with Betadine solution for vaginal prep and ChloraPrep for abdominal prep. After adequate anesthesia, a bivalve speculum was placed vaginally. Then, anterior lip of the cervix was grasped with a single-tooth tenaculum. The uterine acorn manipulator was then placed. The bivalve speculum was removed and attention was now placed on the abdomen. A small transverse skin incision was made just below the umbilicus with a scalpel. Allis clamps were utilized to help with open dissection ____ through and through the fascia. The single-site GelPort was then placed and the 3 trocars were then placed through the GelPort. A 5-mm scope was used and two 5-mm accessory trocars were used. The uterus was enlarged with fibroids. The right ovary demonstrated a complex cyst. The left fallopian tube and ovary were normal. With the aid of EnSeal device and graspers, the right round ligament was coagulated and dissected. The right infundibulopelvic ligament was coagulated and dissected. The right broad ligament was coagulated and dissected down to the uterine artery. Bladder flap was created with blunt dissection along with EnSeal device. The left round ligament was then coagulated and dissected. The left uteroovarian pedicle was coagulated and dissected. Left broad ligament was coagulated and dissected down to the uterine artery. We then proceeded vaginally. Weighted speculum and curved Ludmila were placed vaginally. The single-tooth tenaculum and acorn uterine manipulator was removed. Lucinda clamps were placed to the anterior and posterior lips of the cervix. Cervix was injected with 1% lidocaine with epinephrine in a circumferential manner. Bovie cautery was utilized to circumscribe the cervix. The vaginal wall mucosa was dissected away from the lower uterine segment using a moist Ray-Andriy. The cardinal ligaments were then clamped bilaterally, cut, and suture-ligated. We entered the posterior cul-de-sac sharply with curved Espinal scissors. The uterosacral ligaments were clamped, cut, and tied. The cervix, uterus, right fallopian tube, and ovary were then removed. The remainder of the vaginal cuff was re-approximated using 2-0 Vicryl suture in a [id number] manner, incorporating the uterosacral ligaments bilaterally. A modified De Leon's culdoplasty was performed prior to closure of the vaginal cuff. A moist vaginal packing was then placed. Attention was once again placed on the abdomen. The abdomen was allowed to insufflate up to 1.5 liters of CO2 gas. The posterior vaginal cuff and right adnexa were all hemostatic. This was verified with suction and irrigation. The trocars were all removed. The Gelport was removed as well. The fascia was re-approximated using 2-0 Vicryl suture in a running fashion. The skin was re-approximated using 4-0 Vicryl suture in a subcuticular manner. A 0.25% Marcaine with epinephrine was injected at the incision site. The patient tolerated the procedure well and was taken to recovery room in stable condition. Sponge and needle counts were correct x 3. CHEO WOOD MD DR: DILAN/sarkis JOB#: [id number] / [id number]
== END 2017-05-03 12:35 | disposition home or self-care (01) ==
LOC: SURG 07:03 → 3 NORTH 10:24
PROVIDERS: ADMIT Obstetrics & Gynecology; ATTEND Obstetrics & Gynecology
DX: D25.9 Leiomyoma of uterus, unspecified (principal); N94.10 Unspecified dyspareunia; N93.9 Abnormal uterine and vaginal bleeding, unspecified; N83.201 Unspecified ovarian cyst, right side; N89.5 Stricture and atresia of vagina
CPT/HCPCS: 36415; 49329; 81025; 85027; 86850; 86900; 86901; 86920; 88307; A4215; G0378; G0379; J0330; J0690; J1100; J1170; J1885; J2001; J2175; J2250; J2270; J2370; J2405; J2704; J2710; J3010; J3490; J7030; J7120; P9016; S0028; 96374; 96375

== ENCOUNTER 2017-05-11 12:52 | Inpatient (IN) | payer BC ==
[~2017-05-11] VITALS: Ht 165.1 cm; Wt 76.7 kg
[~2017-05-11 12:52] MED LIST changes: +DOCU-109 PO; -ESTROGENS, CONJ VAGINAL CREAM 30GM TUBE. ONE; +IBUP-1060 PO; -IV RINGERS,LACTATED 1000ML 1,000 ML IV SCH; -LIDOCAINE 1% 1 ML SYRINGE. ID PRN; -LIDOCAINE 1%/EPI 1:100,000 20 ML VIAL. ONE; -ONDANSETRON PF 4 MG/2 ML VIAL. IV PRN; -PROCHLORPERAZINE 10 MG/2 ML VIAL. IV PRN; -SURGICEL HEMOSTAT 4X8 EACH. ONE; -fentaNYL PF VIAL 100 MCG/2 ML VIAL IV PRN
[2017-05-11 13:37] LABS: BILIRUBIN,URINE SMALL (NEG); GLUCOSE,URINE NEGATIVE (NEG); NITRITE,URINE NEGATIVE (NEG); PH,URINE 5.5; PROTEIN,URINE 30 mg/dL (NEG-TRACE); UROBILINOGEN,URINE 0.2 mg/dL (0.2 mg/dL)
[2017-05-11 14:01] LABS: BACTERIA,URINE MANY /HPF (0-FEW); SQUAMOUS EPITHELIAL CELL,UR MOD /LPF
[2017-05-11] MEDS ORDERED: IV NORMAL SALINE 1000ML BAG 1,000 ML IV SCH (14:28)
[2017-05-11] MEDS ORDERED: KETOROLAC TROMETHAMINE 30 MG/ML INJ. IV ONE (14:30)
[2017-05-11] MEDS ORDERED: ONDANSETRON PF 4 MG/2 ML VIAL. IV ONE (14:30)
[2017-05-11] MEDS ORDERED: IOHEXOL 300 MG/ML 75 ML VIAL IV ONE (14:45)
[2017-05-11] MEDS: fentaNYL PF VIAL 100 MCG/2 ML VIAL IV PRN ×3 (14:59→18:47)
[2017-05-11 15:09] LABS: BASO # 0.1 x10^3/uL (0.0-0.2); BASO % 1 % (0-3); EOS % 2 % (0-3); HEMOGLOBIN 11.3 g/dL (12.0-15.5); LYMPH # 1.6 x10^3/uL (1.0-4.8); LYMPH % 11 % (24-48); MEAN CORPUSCULAR HEMOGLOBIN 29 pg (25-35); MEAN CORPUSCULAR HGB CONC 33 g/dL (31-37); MEAN CORPUSCULAR VOLUME 87 fL (79-100); MONO % 8 % (0-9); NEUT % 78 % (31-73); PLATELET COUNT 330 x10^3/uL (140-400); RED BLOOD COUNT 3.93 x10^6/uL (3.50-5.40); RED CELL DISTRIBUTION WIDTH 16.9 % (11.5-14.5); WHITE BLOOD COUNT 14.7 x10^3/uL (4.0-11.0)
[2017-05-11 15:18] LABS: CALCIUM 8.4 mg/dL (8.5-10.1); CREATININE 0.9 mg/dL (0.6-1.0); GFR 83.1; POTASSIUM 3.9 mmol/L (3.5-5.1)
[2017-05-11 15:23] LABS: ALBUMIN 3.3 g/dL (3.4-5.0); ALBUMIN/GLOBULIN RATIO 0.8 (1.0-1.7); TOTAL BILIRUBIN 0.3 mg/dL (0.2-1.0); TOTAL PROTEIN 7.6 g/dL (6.4-8.2)
--- NOTE | 2017-05-11 16:19 | ED.ADGEN ---
Past Medical History Past Medical History: Other Additional Past Medical Histor: OVARIAN CYST/TUMOR? Past Surgical History: Hysterectomy, Oophorectomy, Other Additional Past Surgical Histo: TUBAL Alcohol Use: None Drug Use: None Adult General Chief Complaint Chief Complaint: PAIN ON URINATION HPI HPI Patient is a 41 year old woman, who presents to the emergency department with a complaint of worsening abdominal pain over the past several days. Patient had a hysterectomy for fibroids and removal of her right ovary due to a cyst performed May [address] Wood. Patient states that she's been having pain ever since her procedure, but her pain worsened over the past several days, states that she is feeling nauseous denies any vomiting, denies any fevers or chills, states that she initially was having burning with urination, and a feeling of increasing pressure in her pelvic region, now is noting blood in her urine, and vaginal discharge which she states is also bloody. Patient denies any injuries, is complaining of back pain additionally, denies any chest pain or shortness breath, any swelling in the extremity is, any rashes, any sick contacts or exposures. States she has been taking medications as directed by Dr. Wood, not spoken to her about these issues yet. She appears extremely uncomfortable, is tearful during my examination. Review of Systems Review of Systems Constitutional: Denies fever or chills. [] Eyes: Denies change in visual acuity. [] HENT: Denies nasal congestion or sore throat. [] Respiratory: Denies cough or shortness of breath. [] Cardiovascular: Denies chest pain or edema. [] GI: Abdominal pain, nausea, no vomiting, no bloody stools or diarrhea. : Dysuria, with hematuria, also vaginal discharge.] Musculoskeletal: Denies back pain or joint pain. [] Integument: Denies rash. [] Neurologic: Denies headache, focal weakness or sensory changes. [] Endocrine: Denies polyuria or polydipsia. [] Lymphatic: Denies swollen glands. [] Psychiatric: Denies depression or anxiety. [] Current Medications Current Medications Current Medications Medications (Trade) Dose Ordered Sig/Lesa Start Time Stop Time Status Last Admin Dose Admin Fentanyl Citrate (Fentanyl 2ml Vial) 25 mcg PRN Q15MIN PRN 05/11/17 14:30 05/12/17 14:29 05/11/17 16:00 25 MCG Iohexol (Omnipaque 300 Mg/ml) 75 ml 1X ONCE 05/11/17 14:45 05/11/17 14:46 DC 05/11/17 15:35 75 ML Ketorolac Tromethamine (Toradol) 30 mg 1X ONCE 05/11/17 14:30 05/11/17 14:42 DC 05/11/17 14:59 30 MG Metronidazole 100 ml @ 100 mls/hr Q8HRS 05/11/17 22:00 UNV Ondansetron HCl (Zofran) 4 mg 1X ONCE 05/11/17 14:30 05/11/17 14:42 DC 05/11/17 14:59 4 MG Piperacillin Sod/ Tazobactam Sod (Zosyn Per Pharmacy) 1 each PRN DAILY PRN 05/11/17 16:30 UNV Piperacillin Sod/ Tazobactam Sod 3.375 gm/Sodium Chloride 50 ml @ 100 mls/hr 1X ONCE 05/11/17 17:00 05/11/17 17:29 Sodium Chloride 1,000 ml @ 1,000 mls/hr Q1H 05/11/17 14:28 05/11/17 15:27 DC 05/11/17 14:58 1,000 MLS/HR Allergies Allergies Allergies Coded Allergies Type Severity Reaction Last Updated Verified No Known Drug Allergies 05/01/17 No Physical Exam Physical Exam Constitutional: Well developed, well nourished, distressed secondary to pain, tearful during her examination, non-toxic appearance. [] HENT: Normocephalic, atraumatic, bilateral external ears normal, oropharynx moist, no oral exudates, nose normal. [] Eyes: PERRLA, EOMI, conjunctiva normal, no discharge. [] Neck: Normal range of motion, no tenderness, supple, no stridor. [] Cardiovascular:Heart rate regular rhythm, no murmur, S1, S2, rubs or gallops. [] Lungs & Thorax: Bilateral breath sounds clear to auscultation, no wheezing, rhonchi, rales. No chest or crepitus or tenderness. [] Abdomen: Bowel sounds normal, soft, patient with tenderness palpation throughout the pelvic region, voluntary guarding, no rebound or rigidity,, no masses, no pulsatile masses. [] Skin: Warm, dry, no erythema, no rash. [] Back: No tenderness, no CVA tenderness. [] Extremities: No tenderness, no cyanosis, no clubbing, ROM intact, no edema. Negative Homans sign. [] Neurologic: Alert and oriented X 3, normal motor function, normal sensory function, no focal deficits noted. [] Psychologic: Affect normal, judgement normal, mood normal. [] Current Patient Data Vital Signs Vital Signs Date Time Temp Pulse Resp B/P (MAP) Pulse Ox O2 Delivery O2 Flow Rate FiO2 05/11/17 16:03 73 18 146/80 (102) 99 Room Air 05/11/17 13:20 98.7 98.7 Lab Values Laboratory Tests Test 05/11/17 13:26 05/11/17 15:00 Urine Collection Type Unknown Urine Color Yellow Urine Clarity Hazy Urine pH 5.5 Urine Specific [place] 1.025 Urine Protein 30 mg/dL (NEG-TRACE) Urine Glucose (UA) Negative mg/dL (NEG) Urine Ketones (Stick) Trace mg/dL (NEG) Urine Blood Large (NEG) Urine Nitrite Negative (NEG) Urine Bilirubin Small (NEG) Urine Urobilinogen Dipstick 0.2 mg/dL (0.2 mg/dL) Urine Leukocyte Esterase Small (NEG) Urine RBC 3-5 /HPF (0-2) Urine WBC 11-20 /HPF (0-4) Urine Squamous Epithelial Cells Mod /LPF Urine Bacteria Many /HPF (0-FEW) Urine Mucus Marked /LPF White Blood Count 14.7 x10^3/uL (4.0-11.0) H Red Blood Count 3.93 x10^6/uL (3.50-5.40) Hemoglobin 11.3 g/dL (12.0-15.5) L Hematocrit 34.0 % (36.0-47.0) L Mean Corpuscular Volume 87 fL (79-100) Mean Corpuscular Hemoglobin 29 pg (25-35) Mean Corpuscular Hemoglobin Concent 33 g/dL (31-37) Red Cell Distribution Width 16.9 % (11.5-14.5) H Platelet Count 330 x10^3/uL (140-400) Neutrophils (%) (Auto) 78 % (31-73) H Lymphocytes (%) (Auto) 11 % (24-48) L Monocytes (%) (Auto) 8 % (0-9) Eosinophils (%) (Auto) 2 % (0-3) Basophils (%) (Auto) 1 % (0-3) Neutrophils # (Auto) 11.5 x10^3uL (1.8-7.7) H Lymphocytes # (Auto) 1.6 x10^3/uL (1.0-4.8) Monocytes # (Auto) 1.2 x10^3/uL (0.0-1.1) H Eosinophils # (Auto) 0.3 x10^3/uL (0.0-0.7) Basophils # (Auto) 0.1 x10^3/uL (0.0-0.2) Sodium Level 141 mmol/L (136-145) Potassium Level 3.9 mmol/L (3.5-5.1) Chloride Level 105 mmol/L (98-107) Carbon Dioxide Level 26 mmol/L (21-32) Anion Gap 10 (6-14) Blood Urea Nitrogen 7 mg/dL (7-20) Creatinine 0.9 mg/dL (0.6-1.0) Estimated GFR (Cockcroft-Gault) 83.1 BUN/Creatinine Ratio 8 (6-20) Glucose Level 81 mg/dL (70-99) Calcium Level 8.4 mg/dL (8.5-10.1) L Total Bilirubin 0.3 mg/dL (0.2-1.0) Aspartate Amino Transferase (AST) 12 U/L (15-37) L Alanine Aminotransferase (ALT) 9 U/L (14-59) L Alkaline Phosphatase 66 U/L (46-116) Total Protein 7.6 g/dL (6.4-8.2) Albumin 3.3 g/dL (3.4-5.0) L Albumin/Globulin Ratio 0.8 (1.0-1.7) L Laboratory Tests 05/11/17 15:00 Laboratory Tests 05/11/17 15:00 EKG EKG Not indicated. [] Radiology/Procedures Radiology/Procedures [][facility] [address] [place] [address] IMAGING REPORT Signed PATIENT: OUSMANE BORJAS ACCOUNT: [id number] : 1975 LOCATION: ER AGE: 41 SEX: F EXAM STATUS: REG ER ORD. PHYSICIAN: FRANK DENNY DO REASON: abd pain/s/p hysterectomy PROCEDURE: CT ABD PELV W/ IV CONTRST ONLY Indication abdominal pain. Status post hysterectomy 05/01/2017. Reportedly the right ovary was removed. The status of the left is uncertain. Axial images through the abdomen and pelvis were obtained. The study is slightly limited no oral contrast was administered. Approximately 75 cc of Omnipaque 300 was administered. Note is made of a CT examination of the abdomen and pelvis 04/26/2017 prior to hysterectomy. The lung bases are clear. There is a small soft tissue mass in the ventral pelvic wall in the subcutaneous soft tissues compatible with a small seroma or hematoma. The liver and spleen appear unremarkable. The gallbladder is largely collapsed but grossly normal no pancreatic pathology is seen. No adrenal or renal pathology is seen. Acute finding in the abdomen is not apparent. In the pelvis there is air in the urinary bladder. This may reflect instrumentation. A fistulous communication with the bladder is not entirely excluded. There is thickening and stranding surrounding the sigmoid colon. This may reflect diverticular disease. There is a low-density 2 cm mass adjacent to the sigmoid colon. It is uncertain whether this is a reflection of ovary. A small abscess is not excluded. A large abscess, amenable to drainage is not seen. IMPRESSION: No acute or significant finding in the abdomen. Air in the urinary bladder. This may reflect recent instrumentation. Infection or fistula accounting for the air in the bladder is not excluded. Irregularity surrounding the sigmoid colon most consistent with an infectious process.. It is is not certain whether this is a reflection of diverticular disease (diverticulitis) or inflammatory changes in the pelvis possibly secondary to infection associated with the recent hysterectomy. Focal colitis is not excluded. 2 cm low-density mass adjacent to the sigmoid colon may reflect abscess or ovary. Additional evaluation of the pelvis following the administration of oral and/or rectal contrast would be useful. DICTATED and SIGNED BY: LORENA THORPE MD DATE: 05/11/17 0476 CC: MELVIN PEARL MD; FRANK DENNY DO ~ Course & Med Decision Making Course & Med Decision Making Pertinent Labs and Imaging studies reviewed. (See chart for details) Patient received IV fentanyl with good effect in the emergency department, is agreeable to receiving laboratory studies, IV fluids, and CT of abdomen and pelvis to further elucidate her symptoms. CT of abdomen and pelvis obtained, reveals air in the bladder, with no history of recent catheterization, with concern for possible fistula, some fluid collections which may postsurgical, and potentially abscess formation with potential inflammation of the colon also noted. I did discuss this with Dr. Clay, the radiologist. I spoke with Dr. Wood, the patient's CUSTOMER COMPLAINT CLERK, who requests the patient be admitted to his service, with a Tim catheter placed, and initiation of Zosyn and Flagyl. I did discuss this with the patient and family at bedside, she is resting more comfortably after receiving fentanyl stated, discussed that it is unclear at this time this is simply cystitis, or a more concerning issue, she is agreeable to Tim catheter and IV antibiotics. Bridge orders entered per discussion. Dragon Disclaimer Dragon Disclaimer This electronic medical record was generated, in whole or in part, using a voice recognition dictation system. Departure Impression: Primary Impression: UTI (urinary tract infection) Additional Impression: Pelvic pain Disposition: ADMITTED INPATIENT Admitting Physician: Other Condition: IMPROVED Problem Qualifiers FRANK DENNY DO May 11, 2017 16:19
[2017-05-11] MEDS ORDERED: PIP/TAZO PER PHARMACY MC PRN (16:30)
[2017-05-11] MEDS ORDERED: PIPERACILLIN/TAZOBACTAM 3.375 GM in IV NORMAL SALINE 50ML 50 ML IV ONE (17:00)
[2017-05-11] MEDS ORDERED: ONDANSETRON PF 4 MG/2 ML VIAL. IV PRN (17:15)
[2017-05-11] MEDS: IV NORMAL SALINE 1000ML BAG 1,000 ML IV SCH (18:27)
[2017-05-11] MEDS: PIPERACILLIN/TAZOBACTAM 3.375 GM in IV NORMAL SALINE 50ML 50 ML IV SCH (18:29)
[2017-05-11 18:54] VITALS: BP 142/82
[2017-05-11] MEDS: MORPHINE SULFATE 4 MG/ML DISP.SYRIN. IV PRN (21:05)
[2017-05-11 23:02] VITALS: BP 131/80
[2017-05-12] MEDS: MORPHINE SULFATE 4 MG/ML DISP.SYRIN. IV PRN ×2 (00:47→06:35)
--- NOTE | 2017-05-12 01:21 | ACF ---
Admit Criteria Forms Admit Criteria Forms Admit Criteria Forms URINARY COMPLICATIONS Clinical Indications for Inpatient Care (Place 'X' for any and all applicable criteria): Ongoing inpatient care may be indicated for urinary complications with ANY ONE of the following: [ X]I. Urinary tract infection requiring inpatient care as indicated by ANY ONE of the following(8)(19)(20): [ ]a) Severe symptoms (eg, high fever, severe pain) [ ]b) Vomiting or dehydration requiring ongoing inpatient care [X ]c) IV antibiotic needs that cannot be managed at lower level of care [ ]d) Hemodynamic instability [ ]e) Obstruction of collecting system by stone or tumor [ ]II. Urinary retention requiring drainage or surgery (3)(4)(5)(17)(18) [ ]III. Renal failure (Use Renal Failure Criteria for further information.) [ ]IV. Oliguria(30) [ ]V. Post obstructive diuresis requiring close monitoring of urine output and intravenous compensation for excessive fluid losses(33) Extended stay beyond goal length of stay for primary condition may be needed until ALL of the following are present(3)(4)(5)(8): [ ]a) Renal function (creatinine) at baseline, or daily decreases in creatinine consistent with renal function return [ ]b) Voiding adequately or with urinary catheter or percutaneous suprapubic tube and management regimen in place that is performable at lower level of care. [ ]c) Urine output adequate [ ]d) Fever absent or resolving [ ]e) Infection absent or treatable at next level of care The original [employer] content created by [employer] has been revised. The portions of the content which have been revised are identified through the use of italic text or in bold, and [facility] has neither reviewed nor approved the modified material. All other unmodified content is copyright [facility] Please see references footnoted in the original [employer] [facility] edition 2016 LIZETTE PERERA May 12, 2017 01:21
[2017-05-12] MEDS: IV NORMAL SALINE 1000ML BAG 1,000 ML IV SCH ×2 (04:26→14:36)
[2017-05-12] MEDS: PIPERACILLIN/TAZOBACTAM 3.375 GM in IV NORMAL SALINE 50ML 50 ML IV SCH ×5 (05:42→17:46)
[2017-05-12 06:27] VITALS: BP 138/87
[2017-05-12 06:51] LABS: BASO % 0 % (0-3); EOS % 3 % (0-3); HEMATOCRIT 29.7 % (36.0-47.0); HEMOGLOBIN 10.3 g/dL (12.0-15.5); LYMPH # 1.1 x10^3/uL (1.0-4.8); LYMPH % 10 % (24-48); MEAN CORPUSCULAR HEMOGLOBIN 30 pg (25-35); MEAN CORPUSCULAR HGB CONC 35 g/dL (31-37); MEAN CORPUSCULAR VOLUME 86 fL (79-100); MONO % 8 % (0-9); NEUT % 78 % (31-73); PLATELET COUNT 291 x10^3/uL (140-400); RED BLOOD COUNT 3.47 x10^6/uL (3.50-5.40); RED CELL DISTRIBUTION WIDTH 17.1 % (11.5-14.5); WHITE BLOOD COUNT 10.5 x10^3/uL (4.0-11.0)
[2017-05-12 07:03] LABS: CALCIUM 7.5 mg/dL (8.5-10.1); CREATININE 0.8 mg/dL (0.6-1.0); GFR 95.2; POTASSIUM 3.8 mmol/L (3.5-5.1)
[2017-05-12] MEDS: oxyCODONE/APAP 7.5/325 1 TAB TABLET PO PRN ×4 (09:22→23:20)
[2017-05-12 10:44] VITALS: BP 132/88
[2017-05-12] MEDS ORDERED: IOHEXOL 240 MG/ML 50ML VIAL. PO ONE (11:15)
[2017-05-12] MEDS ORDERED: CONTRAST GIVEN MC PRN (11:30)
[2017-05-12] MEDS ORDERED: IOHEXOL 350 MG/ML 100 ML VIAL. PO ONE (11:30)
[2017-05-12 15:20] VITALS: BP 130/87
--- NOTE | 2017-05-12 17:06 | RAD ---
CT of the abdomen and pelvis without contrast, 05/12/2017: History: Postop pain Multidetector CT imaging was performed following oral ingestion of contrast. We attempted to administer rectal contrast as planned for optimal delineation of the pelvic bowel loops, however, the patient refused the rectal contrast. No IV contrast was administered for this study. The unopacified liver is unremarkable. No gallbladder abnormality is seen. The pancreas is unremarkable. The spleen is of normal size. The unopacified kidneys show no abnormality. Gas collections seen within the urinary bladder on yesterday's study have diminished. These may have been on an iatrogenic basis. The bowel loops are not dilated. There is no evidence of bowel obstruction. There are persistent heterogeneous paracolic densities at the sigmoid colon level. Lower pelvic bowel loops are not opacified, as this patient refused the rectal contrast administration. No discrete well-defined abscess is seen. Similar findings were present on yesterday's exam. No free air or significant volume of free fluid is identified in the abdomen. IMPRESSION: 1. Abnormal paracolic densities at the sigmoid level appear unchanged since yesterday's study, and are likely postsurgical. Further CT follow-up may be useful in excluding developing abscess. Since the patient refused rectal contrast, if a follow up exam is contemplated it could be performed with abundant oral contrast and a long delay in attempt to opacify the distal colon, as well as utilizing IV contrast for optimal delineation. 3. Air collections in the urinary bladder have partially cleared and may have been iatrogenic. PQRS Compliance Statement: One or more of the following individualized dose reduction techniques were utilized for this examination: 1. Automated exposure control 2. Adjustment of the mA and/or kV according to patient size 3. Use of iterative reconstruction technique
--- NOTE | 2017-05-12 18:51 | PDOC1 ---
History and Physical Date of Admission Date of Admission DATE: 05/11/17 TIME: 18:44 Identification/Chief Complaint Chief Complaint dysuria Problems: History of Present Illness History of Present Illness 41 y/o presents to ED with c/o dysuria and lower abd pain for past 2 days. She is 5 days s/p LAVH & RSO with reoperation for post op hemorrhage/hematoma evacuation. No fever, chills, N/V, CP or SOB. Last bowel movement > 7 days ago. Past Surgical History Past Surgical History: Hysterectomy Current Medications Current Medications Current Medications Fentanyl Citrate (Fentanyl 2ml Vial) 25 mcg PRN Q15MIN PRN IV PAIN GREATER THAN 3/10 Last administered on 05/11/17 18:47; Start 05/11/17 at 14:30; Stop at 14:29; Status DC Sodium Chloride 1,000 ml @ 1,000 mls/hr Q1H IV Last administered on 05/11/17 14:58; Start 05/11/17 at 14:28; Stop 05/11/17 at 15:27; Status DC Ondansetron HCl (Zofran) 4 mg 1X ONCE IV Last administered on 05/11/17 14:59 ; Start 05/11/17 at 14:30; Stop 05/11/17 at 18:24; Status DC Ketorolac Tromethamine (Toradol) 30 mg 1X ONCE IV Last administered on 14:59; Start 05/11/17 at 14:30; Stop 05/11/17 at 18:24; Status DC Iohexol (Omnipaque 300 Mg/ml) 75 ml 1X ONCE IV Last administered on 05/11/17 15:35; Start 05/11/17 at 14:45; Stop 05/11/17 at 18:24; Status DC Metronidazole 100 ml @ 100 mls/hr 1X ONCE IV ; Start 05/11/17 at 16:30; Stop 05/11/17 at 18:24; Status DC Metronidazole 100 ml @ 100 mls/hr Q8HRS IV Last administered on 05/12/17 14: 34; Start 05/11/17 at 22:00 Piperacillin Sod/ Tazobactam Sod (Zosyn Per Pharmacy) 1 each PRN DAILY PRN MC SEE COMMENTS; Start 05/11/17 at 16:30 Piperacillin Sod/ Tazobactam Sod 3.375 gm/Sodium Chloride 50 ml @ 100 mls/hr 1X ONCE IV ; Start 05/11/17 at 17:00; Stop 05/11/17 at 18:24; Status DC Ondansetron HCl (Zofran) 4 mg PRN Q8HRS PRN IV NAUSEA/VOMITING; Start 05/11/17 at 17:15; Stop 05/12/17 at 17:14; Status DC Morphine Sulfate 4 mg PRN Q2HR PRN IV PAIN Last administered on 05/12/17 06:35 ; Start 05/11/17 at 17:15; Stop 05/12/17 at 17:14; Status DC Sodium Chloride 1,000 ml @ 125 mls/hr Q8H IV Last administered on 05/12/17 14 :36; Start 05/11/17 at 17:04; Stop 05/12/17 at 17:03; Status DC Piperacillin Sod/ Tazobactam Sod 3.375 gm/Sodium Chloride 50 ml @ 100 mls/hr Q6HRS IV Last administered on 05/12/17 17:46; Start 05/11/17 at 18:00 Oxycodone/ Acetaminophen (Percocet 7.5/ 325) 2 tab PRN Q4HRS PRN PO PAIN Last administered on 05/12/17 14:46; Start 05/12/17 at 09:15 Iohexol (Omnipaque 240 Mg/ml) 30 ml 1X ONCE PO Last administered on 05/12/17 12:50; Start 05/12/17 at 11:15; Stop 05/12/17 at 11:16; Status DC Iohexol (Omnipaque 350 Mg/ml) 100 ml 1X ONCE PO Last administered on 12:50; Start 05/12/17 at 11:30; Stop 05/12/17 at 11:31; Status DC Info (Do NOT chart on this entry -- for MONITORING) 1 each PRN DAILY PRN MC SEE COMMENTS; Start 05/12/17 at 11:30; Stop 05/14/17 at 11:29 Active Scripts Active Percocet 5-325 Mg Tablet (Oxycodone/Acetaminophen) 1 Each Tablet 1-2 Tab PO Q4- 6HRS Colace (Docusate Sodium) 100 Mg Capsule 1 Cap PO BID Ibuprofen 800 Mg Tablet 800 Mg PO PRN Q6HRS PRN Prilosec Otc (Omeprazole Magnesium) 20 Mg Tablet.dr 20 Mg PO DAILY Zofran Odt (Ondansetron) 4 Mg Tab.rapdis 4 Mg PO BID PRN Percocet 5-325 Mg Tablet (Oxycodone/Acetaminophen) 1 Each Tablet 1 Tab PO PRN Q6HRS PRN Allergies Allergies: Coded Allergies: No Known Drug Allergies (Unverified , 05/01/17) ROS General: YES: Malaise, Appetite, No: Chills, Night Sweats, Fatigue, Other PSYCHOLOGICAL ROS: No: Anxiety, Behavioral Disorder, Concentration difficultie , Decreased libido, Depression, Disorientation, Hallucinations, Hostility, Irritablity, Memory difficulties, Mood Swings, Obsessive thoughts, Physical abuse, Sexual abuse, Sleep disturbances, Suicidal ideation, Other Eyes: No Blurry vision, No Decreased vision, No Double vision, No Dry eyes, No Excessive tearing, No Eye Pain, No Itchy Eyes, No Loss of vision, No Photophobia , No Scotomata, No Uses contacts, No Uses glasses, No Other HEENT: No: Heacaches, Visual Changes, Hearing change, Nasal congestion, Nasal discharge, Oral lesions, Sinus pain, Sore Throat, Epistaxis, Sneezing, Snoring, Tinnitus, Vertigo, Vocal changes, Other ALLERGY AND IMMUNOLOGY: No: Hives, Insect Bite Sensitivity, Itchy/Watery Eyes, Nasal Congestion, Post Nasal Drip, Seasonal Allergies, Other Hematological and Lymphatic: No: Bleeding Problems, Blood Clots, Blood Transfusions, Brusing, Night Sweats, Pallor, Swollen Lymph Nodes, Other ENDOCRINE: No: Breast Changes, Galactorrhea, Hair Pattern Changes, Hot Flashes , Malaise/lethargy, Mood Swings, Palpitations, Polydipsia/polyuria, Skin Changes , Temperature Intolerance, Unexpected Weight Changes, Other Breast: No New/Changing Breast Lumps, No Nipple changes, No Nipple discharge, No Other Respiratory: No: Cough, Hemoptysis, Orthopnea, Pleuritic Pain, Shortness of breath, SOB with excertion, Sputum Changes, Stridor, Tachypnea, Wheezing, Other Cardiovascular: No Chest Pain, No Palpitations, No Orthopnea, No Paroxysmal Noc. Dyspnea, No Edema, No Lt Headedness, No Other Gastrointestinal: Yes Abdominal Pain, Yes Constipation, No Nausea, No Vomiting, No Diarrhea, No Melena, No Hematochezia, No Other Genitourinary: YES Dysuria, YES Hematuria, No Frequency, No Incontinence, No Retention, No Discharge, No Urgency, No Pain, No Flank Pain, No Other, No , No , No , No , No , No , No Musculoskeletal: Yes Muscular Weakness, No Gait Disturbance, No Joint Pain, No Joint Stiffness, No Joint Swelling, No Muscle Pain, No Pain In:, No Swelling In:, No Other Physical Exam General: Alert, Oriented X3, Cooperative HEENT: Atraumatic Lungs: Clear to auscultation Heart: S1S2 Cardiovascular: S1 Breasts: Normal Abdomen: Normal bowel sounds, Soft, No masses, Other (mild suprapubic tenderness) PELVIC: Nml ext genitalia, Nml ext vulva, Nml ext vagina Psych/Mental Status: Mental status NL Vitals Vitals Vital Signs Date Time Temp Pulse Resp B/P (MAP) Pulse Ox O2 Delivery O2 Flow Rate FiO2 05/12/17 15:20 98.6 77 18 130/87 (101) 98.6 05/12/17 10:44 Room Air 05/11/17 18:54 97 Labs Labs Laboratory Tests Test 05/11/17 13:26 05/11/17 15:00 05/12/17 06:32 Urine Collection Type Unknown Urine Color Yellow Urine Clarity Hazy Urine pH 5.5 Urine Specific [place] 1.025 Urine Protein 30 mg/dL (NEG-TRACE) Urine Glucose (UA) Negative mg/dL (NEG) Urine Ketones (Stick) Trace mg/dL (NEG) Urine Blood Large (NEG) Urine Nitrite Negative (NEG) Urine Bilirubin Small (NEG) Urine Urobilinogen Dipstick 0.2 mg/dL (0.2 mg/dL) Urine Leukocyte Esterase Small (NEG) Urine RBC 3-5 /HPF (0-2) Urine WBC 11-20 /HPF (0-4) Urine Squamous Epithelial Cells Mod /LPF Urine Bacteria Many /HPF (0-FEW) Urine Mucus Marked /LPF White Blood Count 14.7 x10^3/uL (4.0-11.0) 10.5 x10^3/uL (4.0-11.0) Red Blood Count 3.93 x10^6/uL (3.50-5.40) 3.47 x10^6/uL (3.50-5.40) Hemoglobin 11.3 g/dL (12.0-15.5) 10.3 g/dL (12.0-15.5) Hematocrit 34.0 % (36.0-47.0) 29.7 % (36.0-47.0) Mean Corpuscular Volume 87 fL (79-100) 86 fL (79-100) Mean Corpuscular Hemoglobin 29 pg (25-35) 30 pg (25-35) Mean Corpuscular Hemoglobin Concent 33 g/dL (31-37) 35 g/dL (31-37) Red Cell Distribution Width 16.9 % (11.5-14.5) 17.1 % (11.5-14.5) Platelet Count 330 x10^3/uL (140-400) 291 x10^3/uL (140-400) Neutrophils (%) (Auto) 78 % (31-73) 78 % (31-73) Lymphocytes (%) (Auto) 11 % (24-48) 10 % (24-48) Monocytes (%) (Auto) 8 % (0-9) 8 % (0-9) Eosinophils (%) (Auto) 2 % (0-3) 3 % (0-3) Basophils (%) (Auto) 1 % (0-3) 0 % (0-3) Neutrophils # (Auto) 11.5 x10^3uL (1.8-7.7) 8.2 x10^3uL (1.8-7.7) Lymphocytes # (Auto) 1.6 x10^3/uL (1.0-4.8) 1.1 x10^3/uL (1.0-4.8) Monocytes # (Auto) 1.2 x10^3/uL (0.0-1.1) 0.9 x10^3/uL (0.0-1.1) Eosinophils # (Auto) 0.3 x10^3/uL (0.0-0.7) 0.3 x10^3/uL (0.0-0.7) Basophils # (Auto) 0.1 x10^3/uL (0.0-0.2) 0.0 x10^3/uL (0.0-0.2) Sodium Level 141 mmol/L (136-145) 142 mmol/L (136-145) Potassium Level 3.9 mmol/L (3.5-5.1) 3.8 mmol/L (3.5-5.1) Chloride Level 105 mmol/L (98-107) 109 mmol/L (98-107) Carbon Dioxide Level 26 mmol/L (21-32) 24 mmol/L (21-32) Anion Gap 10 (6-14) 9 (6-14) Blood Urea Nitrogen 7 mg/dL (7-20) 6 mg/dL (7-20) Creatinine 0.9 mg/dL (0.6-1.0) 0.8 mg/dL (0.6-1.0) Estimated GFR (Cockcroft-Gault) 83.1 95.2 BUN/Creatinine Ratio 8 (6-20) Glucose Level 81 mg/dL (70-99) 103 mg/dL (70-99) Calcium Level 8.4 mg/dL (8.5-10.1) 7.5 mg/dL (8.5-10.1) Total Bilirubin 0.3 mg/dL (0.2-1.0) Aspartate Amino Transf (AST/SGOT) 12 U/L (15-37) Alanine Aminotransferase (ALT/SGPT) 9 U/L (14-59) Alkaline Phosphatase 66 U/L (46-116) Total Protein 7.6 g/dL (6.4-8.2) Albumin 3.3 g/dL (3.4-5.0) Albumin/Globulin Ratio 0.8 (1.0-1.7) Laboratory Tests Test 05/12/17 06:32 White Blood Count 10.5 x10^3/uL (4.0-11.0) Red Blood Count 3.47 x10^6/uL (3.50-5.40) Hemoglobin 10.3 g/dL (12.0-15.5) Hematocrit 29.7 % (36.0-47.0) Mean Corpuscular Volume 86 fL (79-100) Mean Corpuscular Hemoglobin 30 pg (25-35) Mean Corpuscular Hemoglobin Concent 35 g/dL (31-37) Red Cell Distribution Width 17.1 % (11.5-14.5) Platelet Count 291 x10^3/uL (140-400) Neutrophils (%) (Auto) 78 % (31-73) Lymphocytes (%) (Auto) 10 % (24-48) Monocytes (%) (Auto) 8 % (0-9) Eosinophils (%) (Auto) 3 % (0-3) Basophils (%) (Auto) 0 % (0-3) Neutrophils # (Auto) 8.2 x10^3uL (1.8-7.7) Lymphocytes # (Auto) 1.1 x10^3/uL (1.0-4.8) Monocytes # (Auto) 0.9 x10^3/uL (0.0-1.1) Eosinophils # (Auto) 0.3 x10^3/uL (0.0-0.7) Basophils # (Auto) 0.0 x10^3/uL (0.0-0.2) Sodium Level 142 mmol/L (136-145) Potassium Level 3.8 mmol/L (3.5-5.1) Chloride Level 109 mmol/L (98-107) Carbon Dioxide Level 24 mmol/L (21-32) Anion Gap 9 (6-14) Blood Urea Nitrogen 6 mg/dL (7-20) Creatinine 0.8 mg/dL (0.6-1.0) Estimated GFR (Cockcroft-Gault) 95.2 Glucose Level 103 mg/dL (70-99) Calcium Level 7.5 mg/dL (8.5-10.1) VTE Prophylaxis Ordered VTE Prophylaxis Devices: No VTE Pharmacological Prophylaxi: No Assessment/Plan Assessment/Plan A: UTI Constipation P: IV abx and CT scan to evaluate for any other infectious process. Rectal suppository. Anticipate d/c home tomorrow. CHEO COOLEY Jr, MD May 12, 2017 18:51
[2017-05-12] MEDS: BISACODYL 10 MG SUPP.RECT. PR PRN (19:24)
[2017-05-12] MEDS: PHENAZOPYRIDINE 200 MG TABLET. PO SCH (20:54)
[2017-05-12] MEDS: DOCUSATE SODIUM 100 MG CAPSULE. PO SCH (20:55)
[2017-05-12 22:59] VITALS: BP 130/83
[2017-05-13] MEDS: PIPERACILLIN/TAZOBACTAM 3.375 GM in IV NORMAL SALINE 50ML 50 ML IV SCH ×5 (00:09→23:08)
[2017-05-13] MEDS: DOCUSATE SODIUM 100 MG CAPSULE. PO SCH ×2 (07:26→20:57)
[2017-05-13] MEDS: oxyCODONE/APAP 7.5/325 1 TAB TABLET PO PRN ×4 (07:26→22:16)
[2017-05-13] MEDS: PHENAZOPYRIDINE 200 MG TABLET. PO SCH ×3 (09:17→20:56)
[2017-05-13] MEDS: OPIUM/BELLADONNA 30/16.2MG SUPP.RECT. PR PRN ×2 (09:18→22:16)
[2017-05-13 09:49] VITALS: BP 121/70
[2017-05-13] MEDS ORDERED: ONDANSETRON PF 4 MG/2 ML VIAL. IV PRN (11:15)
--- NOTE | 2017-05-13 13:33 | PDOC ---
SURGICAL PROGRESS NOTE Subjective Pt. had some relief of pain after bowel movement. Treating colon spasms and constipation with B&O suppository and rectal suppository. Imaging studies reviewed and negative for infection or injury. Vital Signs Vital Signs Date Time Temp Pulse Resp B/P (MAP) Pulse Ox O2 Delivery O2 Flow Rate FiO2 05/13/17 09:49 98.1 66 16 121/70 (87) 98 Room Air 98.1 I&O Intake and Output 05/13/17 07:00 Intake Total 800 ml Output Total 1250 ml Balance -450 ml Intake Oral 800 ml Output Urine Total 1250 ml # Voids 1 PATIENT HAS A JOHNSON: No General: Alert, Oriented X3, Cooperative HEENT: Atraumatic Lungs: Clear to auscultation Heart: Regular rate Abdomen: Normal bowel sounds, Soft, No masses, Other (Pelvic exam: confirmed stool in rectum with moderate tenderness to palpation) Extremities: No edema Neuro: Normal gait Psych/Mental Status: Mental status NL Labs Laboratory Tests Test 05/11/17 15:00 05/12/17 06:32 White Blood Count 14.7 x10^3/uL (4.0-11.0) 10.5 x10^3/uL (4.0-11.0) Red Blood Count 3.93 x10^6/uL (3.50-5.40) 3.47 x10^6/uL (3.50-5.40) Hemoglobin 11.3 g/dL (12.0-15.5) 10.3 g/dL (12.0-15.5) Hematocrit 34.0 % (36.0-47.0) 29.7 % (36.0-47.0) Mean Corpuscular Volume 87 fL (79-100) 86 fL (79-100) Mean Corpuscular Hemoglobin 29 pg (25-35) 30 pg (25-35) Mean Corpuscular Hemoglobin Concent 33 g/dL (31-37) 35 g/dL (31-37) Red Cell Distribution Width 16.9 % (11.5-14.5) 17.1 % (11.5-14.5) Platelet Count 330 x10^3/uL (140-400) 291 x10^3/uL (140-400) Neutrophils (%) (Auto) 78 % (31-73) 78 % (31-73) Lymphocytes (%) (Auto) 11 % (24-48) 10 % (24-48) Monocytes (%) (Auto) 8 % (0-9) 8 % (0-9) Eosinophils (%) (Auto) 2 % (0-3) 3 % (0-3) Basophils (%) (Auto) 1 % (0-3) 0 % (0-3) Neutrophils # (Auto) 11.5 x10^3uL (1.8-7.7) 8.2 x10^3uL (1.8-7.7) Lymphocytes # (Auto) 1.6 x10^3/uL (1.0-4.8) 1.1 x10^3/uL (1.0-4.8) Monocytes # (Auto) 1.2 x10^3/uL (0.0-1.1) 0.9 x10^3/uL (0.0-1.1) Eosinophils # (Auto) 0.3 x10^3/uL (0.0-0.7) 0.3 x10^3/uL (0.0-0.7) Basophils # (Auto) 0.1 x10^3/uL (0.0-0.2) 0.0 x10^3/uL (0.0-0.2) Sodium Level 141 mmol/L (136-145) 142 mmol/L (136-145) Potassium Level 3.9 mmol/L (3.5-5.1) 3.8 mmol/L (3.5-5.1) Chloride Level 105 mmol/L (98-107) 109 mmol/L (98-107) Carbon Dioxide Level 26 mmol/L (21-32) 24 mmol/L (21-32) Anion Gap 10 (6-14) 9 (6-14) Blood Urea Nitrogen 7 mg/dL (7-20) 6 mg/dL (7-20) Creatinine 0.9 mg/dL (0.6-1.0) 0.8 mg/dL (0.6-1.0) Estimated GFR (Cockcroft-Gault) 83.1 95.2 BUN/Creatinine Ratio 8 (6-20) Glucose Level 81 mg/dL (70-99) 103 mg/dL (70-99) Calcium Level 8.4 mg/dL (8.5-10.1) 7.5 mg/dL (8.5-10.1) Total Bilirubin 0.3 mg/dL (0.2-1.0) Aspartate Amino Transf (AST/SGOT) 12 U/L (15-37) Alanine Aminotransferase (ALT/SGPT) 9 U/L (14-59) Alkaline Phosphatase 66 U/L (46-116) Total Protein 7.6 g/dL (6.4-8.2) Albumin 3.3 g/dL (3.4-5.0) Albumin/Globulin Ratio 0.8 (1.0-1.7) Assessment/Plan A: Constipation P; Treat constipation. POssible d/c home this evening. Problems: CHEO COOLEY Jr, MD May 13, 2017 13:33
[2017-05-13] MEDS ORDERED: DOCUSATE SODIUM 283 MG/5 ML ENEMA. PR PRN (13:45)
[2017-05-13] MEDS: IBUPROFEN 800 MG TABLET. PO PRN ×2 (14:14→20:56)
[2017-05-13 14:16] VITALS: BP 132/73
[2017-05-13 17:53] VITALS: BP 148/69
[2017-05-13] MEDS: BISACODYL 10 MG SUPP.RECT. PR PRN (20:57)
[2017-05-13 22:56] VITALS: BP 140/84
[2017-05-14] MEDS: oxyCODONE/APAP 7.5/325 1 TAB TABLET PO PRN ×2 (02:48→08:28)
[2017-05-14 04:01] VITALS: BP 128/73
[2017-05-14] MEDS: PIPERACILLIN/TAZOBACTAM 3.375 GM in IV NORMAL SALINE 50ML 50 ML IV SCH (04:52)
[2017-05-14] MEDS: DOCUSATE SODIUM 100 MG CAPSULE. PO SCH (08:28)
[2017-05-14] MEDS: PHENAZOPYRIDINE 200 MG TABLET. PO SCH (08:28)
[2017-05-14 08:30] VITALS: BP 146/83
--- NOTE | 2017-05-14 08:46 | PDOC ---
SURGICAL PROGRESS NOTE Subjective Pt. feeling better. Pain improved after bowel movements yesterday. Bladder pain improves after bowel movement as well. Vital Signs Vital Signs Date Time Temp Pulse Resp B/P (MAP) Pulse Ox O2 Delivery O2 Flow Rate FiO2 05/14/17 08:28 20 05/14/17 04:01 97.9 69 128/73 (91) 97 97.9 05/14/17 03:48 Room Air I&O Intake and Output 05/14/17 06:59 Intake Total 1340 ml Output Total 800 ml Balance 540 ml Intake Oral 1180 ml IV Total 160 ml Output Urine Total 800 ml # Voids 5 PATIENT HAS A JOHNSON: No General: Alert, Oriented X3, Cooperative HEENT: Atraumatic Lungs: Clear to auscultation Heart: Regular rate Abdomen: Normal bowel sounds, Soft, No masses Psych/Mental Status: Mental status NL Assessment/Plan A: Constipation: improved P: D/c home. Problems: CHEO COOLEY Jr, MD May 14, 2017 08:46
--- NOTE | 2017-05-14 08:47 | DISCH ---
DISCHARGE INSTRUCTIONS Condition on Discharge Condition on Discharge: Stable Activity After Discharge Activity Instructions for Disc: Activity as tolerated Lifting Instructions after Dis: No heavy lifting Driving Instructions after Dis: Do not drive today Diet after Discharge Diet after Discharge: Regular Contacting the DRMalcom after DC Call your doctor for: Concerns you may have Follow-Up Follow up with: Dr. Wood in 2 weeks. CHEO WOOD Jr, MD May 14, 2017 08:47
[2017-05-14 11:08] VITALS: BP 147/88
== END 2017-05-14 11:12 | disposition home or self-care (01) | DRG 690 ==
LOC: ER 12:52 → 3 NORTH 16:49
PROVIDERS: ADMIT Obstetrics & Gynecology; ATTEND Obstetrics & Gynecology
DX: N39.0 Urinary tract infection, site not specified (principal); K59.00 Constipation, unspecified; Z79.899 Other long term (current) drug therapy; Z90.710 Acquired absence of both cervix and uterus; Z90.722 Acquired absence of ovaries, bilateral
CPT/HCPCS: 36415; 74176; 74177; 80048; 80053; 81001; 85027; 87086; 96361; 96374; 96375; J1885; J2270; J2405; J2543; J3010; J3490; J7030; Q9966; Q9967; 99285-25

== ENCOUNTER 2019-05-25 16:23 | Emergency (ER) | payer BC ==
[~2019-05-25] VITALS: Ht 165.1 cm; Wt 86.2 kg
[~2019-05-25 16:23] MED LIST changes: +HYDR-3164 PO; -HYDR-971 PO; -OXYC-323 PO; +OXYC1TAB15 PO
[2019-05-25] MEDS ORDERED: ONDANSETRON PF 4 MG/2 ML VIAL. IV ONE (18:45)
[2019-05-25] MEDS ORDERED: KETOROLAC 15 MG/ML VIAL. IV ONE (18:45)
[2019-05-25] MEDS ORDERED: IV NORMAL SALINE 1000ML BAG 1,000 ML IV ONE (18:45)
[2019-05-25] MEDS ORDERED: FAMOTIDINE 20 MG/2 ML VIAL IVP ONE (18:45)
--- NOTE | 2019-05-25 18:58 | PHYS DOC ---
Past Medical History Past Medical History: Other Additional Past Medical Histor: OVARIAN CYST/TUMOR? Past Surgical History: Hysterectomy, Oophorectomy, Other Additional Past Surgical Histo: TUBAL Alcohol Use: None Drug Use: None Adult General Chief Complaint Chief Complaint: ABDOMINAL PAIN HPI HPI Ms. Sierra is a pleasant 43yo AAF w/ PMH significant for partial hysterectomy 3 years ago presents with lower abdominal pain that has been occurring intermittently since her surgery but became more severe yesterday causing her to "feel dizzy, nauseous, and spike a fever." Patient states she had a complication requiring another surgery, which she believes was a hematoma that ruptured. Pain is located in the lower abdomen, sharp, and severe with radiation to her low back. Pain is worsened with eating. Nothing makes it better. Review of Systems Review of Systems Constitutional: Reports fever and chills. Eyes: Denies redness or eye pain HENT: Reports mild sore throat. Denies nasal congestion or rhinorrhea. Respiratory: Denies cough or shortness of breath Cardiovascular: Denies chest pain or palpitations GI: Reports lower abdominal pain. Denies vomiting, diarrhea, constipation, or hematochezia. : Reports mild dysuria. Denies hematuria Musculoskeletal: Reports low back pain. Denies joint pain. Integument: Denies rash or skin lesions Neurologic: Reports SERNA. Denies focal weakness or sensory changes Complete systems were reviewed and found to be within normal limits, except as documented in this note. Current Medications Current Medications Current Medications Medications (Trade) Dose Ordered Sig/Lesa Start Time Stop Time Status Last Admin Dose Admin Famotidine (Pepcid Vial) 20 mg 1X ONCE 05/25/19 18:45 05/25/19 18:48 DC 05/25/19 19:13 20 MG Fentanyl Citrate (Fentanyl 2ml Vial) 100 mcg STK-MED ONCE 05/25/19 19:24 05/25/19 19:24 DC Ketorolac Tromethamine (Toradol 15mg Vial) 15 mg 1X ONCE 05/25/19 18:45 05/25/19 18:48 DC 05/25/19 19:13 15 MG Ondansetron HCl (Zofran) 4 mg 1X ONCE 05/25/19 18:45 05/25/19 18:48 DC 05/25/19 19:13 4 MG Sodium Chloride 1,000 ml @ 1,000 mls/hr 1X ONCE 05/25/19 18:45 05/25/19 19:44 DC 05/25/19 19:13 1,000 MLS/HR Allergies Allergies Allergies Coded Allergies Type Severity Reaction Last Updated Verified No Known Drug Allergies 05/01/17 No Physical Exam Physical Exam Constitutional: pleasant, well developed, well nourished, no acute distress, non-toxic appearance HENT: Normocephalic, atraumatic, oropharynx moist Eyes: PERRL, EOMI, conjunctiva normal, no discharge Neck: Normal range of motion, no tenderness, supple Cardiovascular: Heart regular rate and rhythm w/ systolic murmur, no gallops or rubs Lungs & Thorax: Bilateral breath sounds clear to auscultation throughout, no wheezing Abdomen: Soft, non-distended, tenderness to RUQ and RLQ, positive Anne sign, normoactive BS x4 quadrants Skin: Warm, dry, no erythema, no rash Back: No tenderness, no CVA tenderness Extremities: No tenderness, ROM intact, no edema Neurologic: Alert and oriented X 3, normal motor function, normal sensory function, no focal deficits noted Psychologic: Affect normal, judgement normal, mood normal Current Patient Data Vital Signs Vital Signs Date Time Temp Pulse Resp B/P (MAP) Pulse Ox O2 Delivery O2 Flow Rate FiO2 05/25/19 19:27 97 Room Air 05/25/19 18:49 80 20 153/87 (109) 05/25/19 18:30 99.4 99.4 Lab Values Laboratory Tests Test 05/25/19 18:50 05/25/19 19:10 Urine Collection Type Void Urine Color Yellow Urine Clarity Clear Urine pH 5.5 Urine Specific [place] 1.025 Urine Protein Negative mg/dL (NEG-TRACE) Urine Glucose (UA) Negative mg/dL (NEG) Urine Ketones (Stick) Negative mg/dL (NEG) Urine Blood Large (NEG) Urine Nitrite Negative (NEG) Urine Bilirubin Negative (NEG) Urine Urobilinogen Dipstick 0.2 mg/dL (0.2 mg/dL) Urine Leukocyte Esterase Negative (NEG) Urine RBC 11-20 /HPF (0-2) Urine WBC 11-20 /HPF (0-4) Urine Squamous Epithelial Cells Few /LPF Urine Bacteria Moderate /HPF (0-FEW) Urine Mucus Mod /LPF White Blood Count 8.2 x10^3/uL (4.0-11.0) Red Blood Count 4.29 x10^6/uL (3.50-5.40) Hemoglobin 12.9 g/dL (12.0-15.5) Hematocrit 37.6 % (36.0-47.0) Mean Corpuscular Volume 88 fL (79-100) Mean Corpuscular Hemoglobin 30 pg (25-35) Mean Corpuscular Hemoglobin Concent 34 g/dL (31-37) Red Cell Distribution Width 15.6 % (11.5-14.5) H Platelet Count 224 x10^3/uL (140-400) Neutrophils (%) (Auto) 73 % (31-73) Lymphocytes (%) (Auto) 13 % (24-48) L Monocytes (%) (Auto) 12 % (0-9) H Eosinophils (%) (Auto) 2 % (0-3) Basophils (%) (Auto) 0 % (0-3) Neutrophils # (Auto) 6.0 x10^3/uL (1.8-7.7) Lymphocytes # (Auto) 1.1 x10^3/uL (1.0-4.8) Monocytes # (Auto) 1.0 x10^3/uL (0.0-1.1) Eosinophils # (Auto) 0.1 x10^3/uL (0.0-0.7) Basophils # (Auto) 0.0 x10^3/uL (0.0-0.2) Sodium Level 142 mmol/L (136-145) Potassium Level 3.8 mmol/L (3.5-5.1) Chloride Level 107 mmol/L (98-107) Carbon Dioxide Level 24 mmol/L (21-32) Anion Gap 11 (6-14) Blood Urea Nitrogen 10 mg/dL (7-20) Creatinine 0.9 mg/dL (0.6-1.0) Estimated GFR (Cockcroft-Gault) 82.3 BUN/Creatinine Ratio 11 (6-20) Glucose Level 103 mg/dL (70-99) H Calcium Level 8.8 mg/dL (8.5-10.1) Total Bilirubin 0.1 mg/dL (0.2-1.0) L Aspartate Amino Transferase (AST) 13 U/L (15-37) L Alanine Aminotransferase (ALT) 13 U/L (14-59) L Alkaline Phosphatase 62 U/L (46-116) Total Protein 7.4 g/dL (6.4-8.2) Albumin 3.5 g/dL (3.4-5.0) Albumin/Globulin Ratio 0.9 (1.0-1.7) L Lipase 80 U/L (73-393) Laboratory Tests 05/25/19 19:10 Laboratory Tests 05/25/19 19:10 EKG EKG [] Radiology/Procedures Radiology/Procedures PROCEDURE: ABDOMEN LTD Limited ultrasound abdomen May 25, 2019 INDICATION: Right upper quadrant pain. COMPARISON: CT abdomen/pelvis May 12, 2017. TECHNIQUE: Sonographic evaluation of the right upper quadrant was performed utilizing grayscale and color Doppler. FINDINGS: This is portions of the pancreas appear normal. Body and tail are obscured by bowel gas. Visualized aorta and IVC are patent. There is normal echogenicity of the hepatic parenchyma. Right hepatic lobe measures 17.6 cm. No suspicious hepatic mass is identified. There is no intrahepatic or extrahepatic biliary ductal dilatation. There is hepatopedal flow within the portal venous system. Gallbladder is normal in appearance. No gallbladder wall thickening, pericholecystic fluid or gallstones. Common bile duct measures 4 mm. The right kidney measures 10.6 x 4.5 x 4.4 cm. No hydronephrosis. No suspicious renal mass or renal calculi. There is no free fluid in the right upper quadrant. IMPRESSION: No cholelithiasis. No intrahepatic or extrahepatic bladder ductal dilatation. Electronically signed by: Gabi Zafar MD (05/25/2019 8:31 PM) [facility] PROCEDURE: CT CHEST ABDOMEN WO CONTRAST PQRS Compliance Statement: One or more of the following individualized dose reduction techniques were utilized for this examination: 1. Automated exposure control 2. Adjustment of the mA and/or kV according to patient size 3. Use of iterative reconstruction technique CT abdomen/pelvis without contrast 05/25/2019 8:43 PM INDICATION: Back pain, hematuria COMPARISON: CT abdomen/pelvis May 12, 2017 TECHNIQUE: Multiple axial CT images of the abdomen/pelvis were obtained without intravenous contrast. Coronal and sagittal reformats are provided. FINDINGS: Tree-in-bud nodular airspace disease is identified within the medial basal segments of the lower lobes bilaterally suggestive of a infectious/inflammatory pneumonitis. Heart size within normal limits. Evaluation of solid abdominal viscera is limited by lack of intravenous contrast. Liver, spleen, bilateral adrenal glands, pancreas and gallbladder are normal in appearance. The abdominal aorta is normal in course and caliber. There are no pathologically enlarged lymph nodes in the abdomen and pelvis. There is no abdominal free fluid. There is no free intraperitoneal air. Trace free fluid is identified within the dependent portions of the pelvis. Mild colonic diverticulosis without adjacent inflammation. Small and large bowel are normal in caliber. There is no evidence for bowel obstruction. There are no pericolonic inflammatory changes. A normal, nondilated appendix is visualized without adjacent inflammatory changes. The kidneys are relatively symmetric in appearance. There is no suspicious renal mass within the limitations of a noncontrast examination. There is no hydronephrosis. There are no calculi within the kidneys, ureters or urinary bladder. Urinary bladder wall thickening may be secondary to underdistention. No suspicious adnexal masses. No suspicious osseous normality. IMPRESSION: 1. Bibasilar tree-in-bud nodular airspace disease is most suggestive of an infectious/inflammatory pneumonitis/bronchiolitis. 2. No evidence for obstructive uropathy. No calculi are identified within the kidneys, ureters or urinary bladder. There is persistent hematuria, further evaluation with CT urogram may be of benefit. 3. Mild bladder wall thickening may be secondary to underdistention versus cystitis. Electronically signed by: Gabi Zafar MD (05/25/2019 9:25 PM) [facility] Course & Med Decision Making Course & Med Decision Making Pertinent Labs and Imaging studies reviewed. (See chart for details) [] Dragon Disclaimer Dragon Disclaimer This electronic medical record was generated, in whole or in part, using a voice recognition dictation system. Departure Departure Impression: Primary Impression: Abdominal pain Additional Impressions: Bronchitis Hematuria Disposition: 01 HOME, SELF-CARE Condition: STABLE Referrals: MELVIN PEARL MD (PCP) ROSEANNE CHAPPELL MD, SCOTT S MD Patient Instructions: Abdominal Pain (Nonspecific), Acute Bronchitis, Easy-to- Read, Hematuria, Adult Scripts Azithromycin (ZITHROMAX) 250 Mg Tablet 1 PKG PO UD for bronchitis, #6 TAB Take 2 tablets on day 1 and then 1 tablet each day for the next 4 days as directed Prov: FIFI CASTILLO DO 05/25/19 Hyoscyamine Sulfate (LEVSIN-SL) 0.125 Mg Tab.subl 1-2 TAB SL PRN Q4HRS PRN for PAIN, #20 TAB Prov: FIFI CASTILLO DO 05/25/19 Ondansetron (ONDANSETRON ODT) 4 Mg Tab.rapdis 1 TAB PO PRN Q6-8HRS PRN for NAUSEA, #16 TAB Prov: FIFI CASTILLO DO 05/25/19 Famotidine (PEPCID) 20 Mg Tablet 20 MG PO BID, #14 TAB Prov: FIFI CASTILLO DO 05/25/19 Problem Qualifiers Primary Impression: Abdominal pain Abdominal location: unspecified location Qualified Codes: R10.9 - Unspecified abdominal pain Additional Impressions: Hematuria Hematuria type: unspecified type Qualified Codes: R31.9 - Hematuria, unspecified FIFI CASTILLO DO May 25, 2019 18:58
[2019-05-25 19:06] LABS: BILIRUBIN,URINE NEGATIVE (NEG); CLARITY,URINE CLEAR; COLOR,URINE YELLOW; NITRITE,URINE NEGATIVE (NEG); PH,URINE 5.5; PROTEIN,URINE NEGATIVE (NEG-TRACE); UROBILINOGEN,URINE 0.2 mg/dL (0.2 mg/dL)
[2019-05-25 19:19] LABS: BASO % 0 % (0-3); EOS # 0.1 x10^3/uL (0.0-0.7); EOS % 2 % (0-3); HEMATOCRIT 37.6 % (36.0-47.0); HEMOGLOBIN 12.9 g/dL (12.0-15.5); LYMPH # 1.1 x10^3/uL (1.0-4.8); LYMPH % 13 % (24-48); MEAN CORPUSCULAR HEMOGLOBIN 30 pg (25-35); MEAN CORPUSCULAR HGB CONC 34 g/dL (31-37); MEAN CORPUSCULAR VOLUME 88 fL (79-100); MONO % 12 % (0-9); NEUT % 73 % (31-73); PLATELET COUNT 224 x10^3/uL (140-400); RED BLOOD COUNT 4.29 x10^6/uL (3.50-5.40); RED CELL DISTRIBUTION WIDTH 15.6 % (11.5-14.5); WHITE BLOOD COUNT 8.2 x10^3/uL (4.0-11.0)
[2019-05-25 19:20] LABS: BACTERIA,URINE MODERATE /HPF (0-FEW); SQUAMOUS EPITHELIAL CELL,UR FEW /LPF
[2019-05-25] MEDS ORDERED: fentaNYL PF VIAL 100 MCG/2 ML VIAL ONE (19:24)
[2019-05-25] MEDS ORDERED: fentaNYL PF VIAL 100 MCG/2 ML VIAL IV ONE (19:30)
[2019-05-25 19:43] LABS: CALCIUM 8.8 mg/dL (8.5-10.1); CREATININE 0.9 mg/dL (0.6-1.0); GFR 82.3; POTASSIUM 3.8 mmol/L (3.5-5.1)
[2019-05-25 19:48] LABS: ALBUMIN 3.5 g/dL (3.4-5.0); ALBUMIN/GLOBULIN RATIO 0.9 (1.0-1.7); TOTAL BILIRUBIN 0.1 mg/dL (0.2-1.0); TOTAL PROTEIN 7.4 g/dL (6.4-8.2)
--- NOTE | 2019-05-25 20:35 | RAD ---
Limited ultrasound abdomen May 25, 2019 INDICATION: Right upper quadrant pain. COMPARISON: CT abdomen/pelvis May 12, 2017. TECHNIQUE: Sonographic evaluation of the right upper quadrant was performed utilizing grayscale and color Doppler. FINDINGS: This is portions of the pancreas appear normal. Body and tail are obscured by bowel gas. Visualized aorta and IVC are patent. There is normal echogenicity of the hepatic parenchyma. Right hepatic lobe measures 17.6 cm. No suspicious hepatic mass is identified. There is no intrahepatic or extrahepatic biliary ductal dilatation. There is hepatopedal flow within the portal venous system. Gallbladder is normal in appearance. No gallbladder wall thickening, pericholecystic fluid or gallstones. Common bile duct measures 4 mm. The right kidney measures 10.6 x 4.5 x 4.4 cm. No hydronephrosis. No suspicious renal mass or renal calculi. There is no free fluid in the right upper quadrant. IMPRESSION: No cholelithiasis. No intrahepatic or extrahepatic bladder ductal dilatation. Electronically signed by: Gabi Zafar MD (05/25/2019 8:31 PM) [facility]
--- NOTE | 2019-05-25 21:28 | RAD ---
PQRS Compliance Statement: One or more of the following individualized dose reduction techniques were utilized for this examination: 1. Automated exposure control 2. Adjustment of the mA and/or kV according to patient size 3. Use of iterative reconstruction technique CT abdomen/pelvis without contrast 05/25/2019 8:43 PM INDICATION: Back pain, hematuria COMPARISON: CT abdomen/pelvis May 12, 2017 TECHNIQUE: Multiple axial CT images of the abdomen/pelvis were obtained without intravenous contrast. Coronal and sagittal reformats are provided. FINDINGS: Tree-in-bud nodular airspace disease is identified within the medial basal segments of the lower lobes bilaterally suggestive of a infectious/inflammatory pneumonitis. Heart size within normal limits. Evaluation of solid abdominal viscera is limited by lack of intravenous contrast. Liver, spleen, bilateral adrenal glands, pancreas and gallbladder are normal in appearance. The abdominal aorta is normal in course and caliber. There are no pathologically enlarged lymph nodes in the abdomen and pelvis. There is no abdominal free fluid. There is no free intraperitoneal air. Trace free fluid is identified within the dependent portions of the pelvis. Mild colonic diverticulosis without adjacent inflammation. Small and large bowel are normal in caliber. There is no evidence for bowel obstruction. There are no pericolonic inflammatory changes. A normal, nondilated appendix is visualized without adjacent inflammatory changes. The kidneys are relatively symmetric in appearance. There is no suspicious renal mass within the limitations of a noncontrast examination. There is no hydronephrosis. There are no calculi within the kidneys, ureters or urinary bladder. Urinary bladder wall thickening may be secondary to underdistention. No suspicious adnexal masses. No suspicious osseous normality. IMPRESSION: 1. Bibasilar tree-in-bud nodular airspace disease is most suggestive of an infectious/inflammatory pneumonitis/bronchiolitis. 2. No evidence for obstructive uropathy. No calculi are identified within the kidneys, ureters or urinary bladder. There is persistent hematuria, further evaluation with CT urogram may be of benefit. 3. Mild bladder wall thickening may be secondary to underdistention versus cystitis. Electronically signed by: Gabi Zafar MD (05/25/2019 9:25 PM) [facility]
[2019-05-25] MEDS ORDERED: HYOS0.1265 SL (21:37)
[2019-05-25] MEDS ORDERED: FAMO-63 PO (21:37)
[2019-05-25] MEDS ORDERED: ONDA4TAB12 PO (21:37)
[2019-05-25] MEDS ORDERED: AZIT250T PO (21:37)
[2019-05-25 21:50] VITALS: BP 168/90
== END 2019-05-25 22:00 | disposition home or self-care (01) ==
LOC: ER 16:23
DX: R10.31 Right lower quadrant pain (principal); R10.11 Right upper quadrant pain; J40 Bronchitis, not specified as acute or chronic; R31.9 Hematuria, unspecified; R42 Dizziness and giddiness; R11.0 Nausea; R50.9 Fever, unspecified; M54.5 Low back pain; R51 Headache; Z90.710 Acquired absence of both cervix and uterus
CPT/HCPCS: 36415; 71250; 74150; 76705; 80053; 81001; 83690; 85025; 87086; 96361; 96374; 96375; 99285; J1885; J2405; J3010; J3490; J7030

== ENCOUNTER 2021-12-13 17:03 | Emergency (ER) | payer BC ==
[~2021-12-13] VITALS: Ht 165.1 cm; Wt 86.0 kg
[~2021-12-13 17:03] MED LIST changes: +AZIT250T PO; +FAMO-63 PO; +HYOS0.1265 SL; +ONDA4TAB12 PO
--- NOTE | 2021-12-13 17:31 | PHYS DOC ---
Past Medical History Past Medical History: Other Additional Past Medical Histor: OVARIAN CYST/TUMOR? Past Surgical History: Tubal ligation Additional Past Surgical Histo: PARTIAL HYSTERECTOMY Smoking Status: Current Every Day Smoker Alcohol Use: None Drug Use: None General Adult EDM: Chief Complaint: FOOT INJURY PAIN HPI: HPI: Patient is a 46-year-old female who presents to the emergency department for right heel and arch pain that started 40 years ago. Patient describes the pain as a shooting pain. She rates it 8 out of 10. Patient reports that she saw her primary care provider for this 2 years ago and had an x-ray that showed a heel spur. 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 Patient has been taking 7.5 mg of oxycodone at home. Patient denies any decreased range of motion, decreased sensation in her extremity or inability to bear weight or ambulate. Review of Systems: Review of Systems: Musculoskeletal: See HPI Integument: See HPI Neurologic: See HPI Heart Score: C/O Chest Pain: N/A Risk Factors: Risk Factors: DM, Current or recent (<one month) smoker, HTN, HLP, family history of CAD, obesity. Risk Scores: Score 0 - 3: 2.5% MACE over next 6 weeks - Discharge Home Score 4 - 6: 20.3% MACE over next 6 weeks - Admit for Clinical Observation Score 7 - 10: 72.7% MACE over next 6 weeks - Early Invasive Strategies Current Medications: Current Medications Medications (Trade) Dose Ordered Sig/Lesa Start Time Stop Time Status Last Admin Dose Admin Ketorolac Tromethamine (Toradol Im) 60 mg 1X ONCE 12/13/21 17:30 12/13/21 17:31 UNV Allergies: Allergies: Allergies Coded Allergies Type Severity Reaction Last Updated Verified No Known Drug Allergies 05/01/17 No Physical Exam: PE: Constitutional: Well developed, well nourished, no acute distress, non-toxic appearance. [] HENT: Normocephalic, atraumatic, bilateral external ears normal, oropharynx moist, no oral exudates, nose normal. [] Eyes: PERRL, EOMI, conjunctiva normal, no discharge. [] Neck: Normal range of motion, no stridor Cardiovascular: Normal peripheral perfusion Lungs & Thorax: Normal work of breathing, no tachypnea Abdomen: Soft and flat Skin: Warm, dry, no erythema, no rash. [] Back: Normal range of motion Extremities: No tenderness, no cyanosis, no clubbing, ROM intact, no edema. [] Right foot: No swelling, redness, warmth, rashes, wounds noted. Range of motion intact, neuro intact. Patient has pain with palpation along plantar fascia and pain is reproduced with dorsiflexion of toes. Neurologic: Alert and oriented X 3, normal motor function, normal sensory function, no focal deficits noted. [] Psychologic: Affect normal, judgement normal, mood normal. [] Current Patient Data: Vital Signs: Vital Signs Date Time Temp Pulse Resp B/P (MAP) Pulse Ox O2 Delivery O2 Flow Rate FiO2 12/13/21 17:03 98.2 67 18 164/81 (108) 100 Room Air 98.2 EKG: EKG: [] Radiology/Procedures: Radiology/Procedures: [] Course & Med Decision Making: Course & Med Decision Making Pertinent Labs and Imaging studies reviewed. (See chart for details) Patient presents to the emergency department for right heel and arch pain. Patient reports that she has had the pain for 4 years, she was seen by her primary care provider 2 years ago and had an x-ray which showed a heel spur and she has been taking 7.5 mg of oxycodone for this. 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 Patient is tender along her plantar fascia and pain is reproduced with dorsiflexion of toes. It is likely that patient is experiencing plantar fasciitis. Patient's pain treated in the emergency department. Patient advised to take NSAIDs and apply ice and use heel and arch supports. She was given referral information for it project lead. I discussed with patient all findings as well as the need to follow-up with PCP for further evaluation and treatment or return to the ER if any new or worsening symptoms. Strict return precautions were also discussed at length. Patient voiced understanding and agreement with the plan. Patient is hemodynamically stable at the time of disposition. Dragon Disclaimer: [place] Disclaimer: This electronic medical record was generated, in whole or in part, using a voice recognition dictation system. Departure Departure Impression: Primary Impression: Plantar fasciitis of right foot Disposition: HOME / SELF CARE / HOMELESS Condition: GOOD Referrals: MELVIN PEARL MD (PCP) THADEDUS HERNANDEZ DPM Patient Instructions: Plantar Fasciitis (Heel Spur Syndrome) with [facility] Additional Instructions: You were seen in the emergency department today for right heel and arch pain. Your physical exam is consistent with plantar fasciitis which is commonly caused by a bone spur. Treatment for this includes application of ice and NSAID use like ibuprofen or naproxen. Please use heel and arch support inserts. You may need to follow-up with the it project lead, you can contact Dr. Hernandez by calling [phone] to set up a follow-up appointment. Return to the emergency department if you develop any worsening of your pain, decreased sensation in your foot, inability to bear weight or walk. RODY RICO APRN Dec 13, 2021 17:31
[2021-12-13] MEDS ORDERED: KETOROLAC 60 MG/2 ML VIAL. IM ONE (18:00)
[2021-12-13 18:16] VITALS: BP 118/78
== END 2021-12-13 18:16 | disposition home or self-care (01) ==
LOC: ER 17:03
DX: M72.2 Plantar fascial fibromatosis (principal); F17.200 Nicotine dependence, unspecified, uncomplicated
CPT/HCPCS: 96372; 99283; J1885